=== PATIENT | male | born 1985 | race Caucasian/White ===

== ENCOUNTER 2017-10-30 06:32 | Inpatient (IN) ==
[2017-10-30] MEDS ORDERED: VANCOMYCIN 1,500 MG in 0.9 % SODIUM CHLORIDE 500 ML IV ONE (07:14)
--- NOTE | 2017-10-30 07:18 | Emergency Department Note ---
Skin/Abscess/FB HPI - General Chief complaint: Skin/Abscess/Foreign Body Stated complaint: abscess Time Seen by Provider: 10/30/17 07:13 Source: patient Mode of arrival: ambulatory Limitations: no limitations - History of Present Illness HPI Narrative: This patient has developed a very large abscess to his right upper back. This come on over the last 3 or 4 days. This is impairing movement of the right arm and he has not been very hungry and has not eaten much. - Related Data Previous Rx's Medication Instructions Recorded Methocarbamol [Robaxin-750] 750 mg PO TID #20 tablet 04/07/17 Allergies Allergy/AdvReac Type Severity Reaction Status Date / Time codeine Allergy Rash Verified 04/07/17 14:17 Penicillins Allergy Rash Verified 04/07/17 14:17 Review of Systems All systems ED: reviewed and negative except as stated. Past Medical History - Past Medical History Medical history: Reports: no medical history, other (Crohn's disease) Surgical history ED: Reports: no surgical history - Social History smoking status: Current every day smoker Alcohol use: Reports: Unknown Drug use: Reports: unknown Physical Exam Patient's right upper back shows a very large abscess cavity that is probably 15 cm in diameter and quite deep. Limitations: no limitations General appearance: alert Head: atraumatic Eye: Present: normal appearance ENT: normal exam Neck: Present: normal inspection Chest: Present: normal inspection Respiratory: Present: normal lung sounds bilaterally Cardiovascular: Present: regular rate, normal rhythm, normal heart sounds Neurological: Present: alert Psychiatric: Present: normal affect, normal mood Skin: Present: warm, dry, intact Course Vital Signs Temperature 97.9 F 10/30/17 06:33 Pulse Rate 91 H 10/30/17 06:33 Respiratory Rate 19 10/30/17 06:33 Blood Pressure 139/84 10/30/17 06:33 Pulse Oximetry (%) 97 10/30/17 06:33 Temperature 97.9 F 10/30/17 06:33 Pulse Rate 91 H 10/30/17 06:33 Respiratory Rate 19 10/30/17 06:33 Blood Pressure 139/84 10/30/17 06:33 Pulse Oximetry (%) 97 10/30/17 06:33 Skin/Abscess/Foreign Body - [facility] Narrative Medical decision making narrative: I discussed the case with the surgeon Dr. Winter who will see shortly and taken to the operating room for drainage. - Lab Data Result diagrams: 10/30/17 07:27 10/30/17 07:27 Lab Results 10/30/17 10/30/17 Range/Units 07:27 07:27 WBC 10.9 (4.5-11.0) K/mcL RBC 4.52 (4.50-5.90) M/mcL Hgb 13.3 L (13.5-16.5) g/dL Hct 40.0 L (41.0-55.0) % MCV 88.5 (80.0-100.0) fL MCH 29.5 (26.0-34.0) pg MCHC 33.3 (31.0-36.0) g/dL RDW 13.5 (11.5-14.5) % Plt Count 273 (140-440) K/mcL MPV 8.4 (7.4-10.4) fL Gran % 73.4 (38.0-78.0) % Lymph % (Auto) 14.5 L (15.5-49.0) % [place] % (Auto) 10.1 (1.0-12.0) % Eos % (Auto) 1.6 (0.0-7.0) % Baso % (Auto) 0.4 (0.0-2.0) % Gran # 8.0 (1.8-8.0) K/mcL Lymph # (Auto) 1.6 (1.5-4.8) K/mcL [place] # (Auto) 1.1 H (0.1-0.9) K/mcL Eos # (Auto) 0.2 (0.0-0.7) K/mcL Baso # (Auto) 0 (0.0-0.3) K/mcL Sodium 135 (133-145) mmol/L Potassium 4.3 (3.3-5.1) mmol/L Chloride 94 L (96-108) mmol/L Carbon Dioxide 28 (22-30) mmol/L Anion Gap 13.0 (8-16) BUN 12 (6-20) mg/dl Creatinine 0.9 (0.7-1.2) mg/dl GFR Calculation 112 Glucose 119 H (70-105) mg/dL Calcium 8.7 (8.6-10.4) mg/dl Total Bilirubin 0.6 (0.0-1.0) mg/dL AST 18 (0-37) U/l ALT 22 (0-40) U/l Alkaline Phosphatase 75 (39-117) U/L Total Protein 7.4 (5.9-8.4) gm/dL Albumin 3.6 (3.2-5.2) gm/dL Globulin 3.8 H (2.2-3.7) gm/dL Albumin/Globulin Ratio 0.9 L (1.0-2.3) Disposition Pt seen by JERKER/PA only: No Clinical Impression: Abscess of skin or subcutaneous tissue Disposition: Xfer As Outpt/Obs ([facility]) Condition: Good Instructions: Abscess Incision and Drainage (ED) Referrals: No,PCP [Referring] - Time of Disposition: 08:37
[2017-10-30] MEDS ORDERED: HYDROmorphone 2 MG/ML SYRINGE IV PRN ×2 (07:30→10:27)
[2017-10-30] MEDS: LACTATED RINGERS 1,000 ML IV SCH ×2 (07:30→23:10)
[2017-10-30 08:04] LABS: Basophils # (Auto) 0 K/mcL (0.0-0.3); Basophils % (Auto) 0.4 % (0.0-2.0); Eosinophils # (Auto) 0.2 K/mcL (0.0-0.7); Eosinophils % (Auto) 1.6 % (0.0-7.0); Granulocytes % (Auto) 73.4 % (38.0-78.0); Lymphocytes # (Auto) 1.6 K/mcL (1.5-4.8); Lymphocytes % (Auto) 14.5 % (15.5-49.0); Mean Cell Volume 88.5 fL (80.0-100.0); Mean Corpuscular HGB Conc 33.3 g/dL (31.0-36.0); Mean Corpuscular Hemoglobin 29.5 pg (26.0-34.0); Monocytes # (Auto) 1.1 K/mcL (0.1-0.9); Monocytes % (Auto) 10.1 % (1.0-12.0); Platelet Count 273 K/mcL (140-440); RBC 4.52 M/mcL (4.50-5.90); Red Cell Distribution Width 13.5 % (11.5-14.5)
[2017-10-30 08:21] LABS: ALT/SGPT 22 U/l (0-40); Albumin 3.6 gm/dL (3.2-5.2); Albumin/Globulin Ratio 0.9 (1.0-2.3); Alkaline Phosphatase 75 U/L (39-117); Blood Urea Nitrogen 12 mg/dl (6-20)
[2017-10-30] MEDS ORDERED: IPRATROPIUM/ALBUTEROL 3 ML AMPUL.NEB NEB ONE ×2 (08:43→10:35)
--- NOTE | 2017-10-30 08:48 | General Surg History&Physical ---
History of Present Illness Patient information: Note initiated : 10/30/17 at 8:45 am Service Date, if different from initiated Date: [] Patient: Niko Cash a 31 y/o M admitted on for Abscess. Chief Complaint: [Back abscess] HPI: Mr. 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 The patient had an area of inflammation in the right upper back that has progressed to develop an abscess. He has had fever chills sweats and he developed cellulitis around and extending anteriorly in the axillary area over the past 2 days. He has severe uncontrolled pain. He will be scheduled for I&D in the OR and will be monitored and extended recovery to make sure that he is clinically stable before discharge home. S Review of Systems - Constitutional chills, fever(s), malaise, night sweats, weight gain - EENT Nose, mouth and throat: no dizziness, no headache(s) - Cardiovascular diaphoresis, dyspnea on exertion, palpatations, no chest pain at rest - Respiratory wheezing, chest congestion - Gastrointestinal diarrhea, nausea, no abdominal pain - Genitourinary no dysuria, no urinary frequency, no urinary incontinence - Musculoskeletal no abnormal gait, no atrophy, no muscle weakness, no numbness - Integumentary erythema, hirsutism, pruritus, sores - Neurological no abnormal hearing, no confusion, no convulsions, no dizziness, no vertigo, no weakness - Psychiatric no anxiety, no confusion, no depression - Endocrine fatigue, palpitations - Hematologic/Lymphatic no easy bleeding, no easy bruising, no lymphadenopathy - Allergic/Immunologic no tongue swelling, no throat swelling, no wheezing, no lip swelling Past History Past medical history: History of familial polyposis with carcinoma: No history of heart, lung, kidney ,liver disease Past surgical history: Total colectomy with ileostomy Ileoproctostomy Exploratory laparotomy with drainage of anastomotic leak Past social history: Everyday smoker Occasional alcohol use Medications and Allergies Home Medications Medication Instructions Recorded Confirmed Type Methocarbamol [Robaxin-750] 750 mg PO TID #20 tablet 04/07/17 Rx Allergies Allergy/AdvReac Type Severity Reaction Status Date / Time codeine Allergy Rash Verified 04/07/17 14:17 Penicillins Allergy Rash Verified 04/07/17 14:17 Exam Temp Pulse Resp BP Pulse Ox 97.9 F 91 H 19 139/84 97 10/30/17 06:33 10/30/17 06:33 10/30/17 06:33 10/30/17 06:33 10/30/17 06:33 - General physical appearance well developed, well nourished, no distress - Eyes PERRL, normal ocular movement - ENT normal pinna, normal nares, normal mucosa, no hearing loss, no congestion, poor correction, other (Gingivitis) - Head Head exam IM: Present: atraumatic, normal inspection, normocephalic - Neck no masses (Is), no bruits, trachea midline, no venous distension, other ( no palpable adenopathy) - Cardiovascular Cardiovascular exam IM: Present: normal rate and rhythm, RRR, +S1, +S2, tachycardia. Absent: JVD - Respiratory normal expansion, normal respiratory effort, clear to percussion, other (Good breath sounds but with bilateral coarse wheezes and rhonchi) - Abdomen Abdomen: Present: soft, non tender, bowel sounds, surgical scars (Healed surgical scars in the lower midline and in the right lower quadrant from previous intestinal surgery). Absent: masses Hernia: Present: none - Genitourinary Present: normal penis with no external lesions - Integumentary Present: no rash, no growths, no abnormal pigmentation, other (Scattered areas of small papules with erythema and varied areas of healing; large tender hard inflamed lesion of upper back on the right side extending from medial back to lateral chest wall and the area inferior to the axilla; no blistering to suggest zoster type infection) - Neurologic Present: normal coordination, normal sensation - Musculoskeletal Present: normal gait, normal posture - Psychiatric Present: oriented to time, oriented to person, oriented to place, speech is normal, memory intact Assessment and Plan (1) Abscess of skin or subcutaneous tissue Patient is counseled for incision and drainage of the abscess under anesthesia. This will be done later today Status: Acute (2) Familial adenomatous polyposis Status: Acute
[2017-10-30] MEDS ORDERED: LIDOCAINE HCL/PF 100 MG/5 ML SYRINGE IV ONE (09:35)
[2017-10-30] MEDS ORDERED: MIDAZOLAM 5 MG/5 ML VIAL ONE (09:35)
[2017-10-30] MEDS ORDERED: DEXAMETHASONE 10 MG/ML VIAL ONE (09:35)
[2017-10-30] MEDS ORDERED: GLYCOPYRROLATE 0.2 MG/ML VIAL IV ONE (09:35)
[2017-10-30] MEDS ORDERED: PHENYLEPHRINE 10 MG/ML VIAL ONE (09:35)
[2017-10-30] MEDS ORDERED: ONDANSETRON 4 MG/2 ML VIAL ONE (09:35)
[2017-10-30] MEDS ORDERED: PROPOFOL 200 MG/20 ML VIAL IV ONE (09:35)
[2017-10-30] MEDS ORDERED: fentaNYL 100 MCG/2 ML VIAL IV ONE (09:35)
[2017-10-30] MEDS ORDERED: KETAMINE 10 MG/ML ML ONE (09:35)
--- NOTE | 2017-10-30 10:19 | Brief Operative Note ---
Date of procedure: 10/30/17 Pre-op diagnosis: ABSCESS OF RIGHT UPPER BACK Post-op diagnosis: other Procedure: EXCISIONAL DEBRIDEMENT OF ABSCESS OF RIGHT UPPER BACK INCLUDING SKIN , SUBCUTANEOUS TISSUE FAT AND FASCIA 12X5.5X3CM Grafts/Implants: No Anesthesia: GLMA Findings: DEEP SUBCUTANEOUS ABSCESS EXTENDING ALONG DEEP FASCIA AND SUPERFICIAL MUSCLE Complications: none Surgeon: Gilberto Winter Estimated blood loss (cc): 25 Specimens Removed/Pathology: other (WOUND CULTURES AND NECROTIC TISSUE) Condition: stable Disposition: PACU
[2017-10-30] MEDS ORDERED: NALOXONE HCL 0.4 MG/ML VIAL IV PRN (10:27)
[2017-10-30] MEDS ORDERED: PROMETHAZINE 25 MG/ML VIAL IV PRN (10:27)
[2017-10-30] MEDS ORDERED: ATROPINE SULFATE 0.4 MG/ML VIAL IV PRN (10:27)
[2017-10-30] MEDS ORDERED: IPRATROPIUM/ALBUTEROL 3 ML AMPUL.NEB NEB PRN (10:27)
[2017-10-30] MEDS ORDERED: METHOCARBAMOL 1,000 MG/10 ML VIAL IV PRN (10:27)
[2017-10-30] MEDS ORDERED: MEPERIDINE 25 MG/ML SYRINGE IV PRN (10:27)
[2017-10-30] MEDS ORDERED: ONDANSETRON 4 MG/2 ML VIAL IV PRN ×2 (10:27→10:29)
[2017-10-30] MEDS ORDERED: METOPROLOL TARTRATE 5 MG/5 ML VIAL IV PRN (10:27)
[2017-10-30] MEDS ORDERED: fentaNYL 100 MCG/2 ML VIAL IV PRN (10:27)
[2017-10-30] MEDS ORDERED: FLUMAZENIL 0.1 MG/ML ML IV PRN (10:27)
[2017-10-30] MEDS ORDERED: ePHEDrine 50 MG/ML AMPUL IV PRN (10:27)
[2017-10-30] MEDS ORDERED: diphenhydrAMINE 50 MG/ML VIAL IV PRN (10:27)
[2017-10-30] MEDS ORDERED: ZOLPIDEM 5 MG TABLET PO PRN (10:29)
[2017-10-30] MEDS ORDERED: LACTATED RINGERS 1,000 ML IV SCH (10:30)
[2017-10-30] MEDS: 0.9 % SODIUM CHLORIDE 1,000 ML IV SCH (12:31)
[2017-10-30] MEDS: ERTAPENEM 1 GM in 0.9 % SODIUM CHLORIDE 50 ML IV SCH (12:31)
[2017-10-30] MEDS: HYDROcodone/APAP 5/325MG TABLET PO PRN ×3 (12:32→20:42)
[2017-10-30] MEDS: HYDROmorphone 2 MG/ML SYRINGE IV PRN ×2 (13:32→19:24)
[2017-10-30] MEDS: 0.9 % SODIUM CHLORIDE 10 ML SYRINGE IV SCH ×2 (13:33→23:10)
[2017-10-30 17:34] LABS: Amphetamine Screen,Urine SUSPECT POSITIVE (NONDETECTED); Benzodiazepines Screen,Urine SUSPECT POSITIVE (NONDETECTED); Cocaine Screen,Urine NONE DETECTED (NONDETECTED); Opiate Screen,Urine NONE DETECTED (NONDETECTED)
[2017-10-30] MEDS: VANCOMYCIN 1,500 MG in 0.9 % SODIUM CHLORIDE 500 ML IV SCH (20:43)
[2017-10-30] MEDS: DOCUSATE SODIUM 100 MG CAPSULE PO SCH (23:10)
[2017-10-31] MEDS: 0.9 % SODIUM CHLORIDE 1,000 ML IV SCH ×3 (03:24→18:38)
[2017-10-31] MEDS: HYDROcodone/APAP 5/325MG TABLET PO PRN ×5 (04:10→23:35)
[2017-10-31] MEDS: 0.9 % SODIUM CHLORIDE 10 ML SYRINGE IV SCH ×3 (05:08→22:56)
[2017-10-31 07:13] LABS: Mean Cell Volume 89.5 fL (80.0-100.0); Mean Corpuscular HGB Conc 33.8 g/dL (31.0-36.0); Mean Corpuscular Hemoglobin 30.3 pg (26.0-34.0); Platelet Count 258 K/mcL (140-440); RBC 3.81 M/mcL (4.50-5.90); Red Cell Distribution Width 13.8 % (11.5-14.5)
[2017-10-31 07:56] LABS: ALT/SGPT 18 U/l (0-40); Albumin 2.8 gm/dL (3.2-5.2); Albumin/Globulin Ratio 0.8 (1.0-2.3); Alkaline Phosphatase 74 U/L (39-117); Bilirubin,Direct < 0.2 mg/dL (0.0-0.3); Blood Urea Nitrogen 11 mg/dl (6-20); Gamma Glutamyl Transpeptidase 45 U/L (8-61); Magnesium 1.9 mg/dL (1.6-2.5); Uric Acid 5.6 mg/dL (2.5-8.0)
[2017-10-31 08:19] LABS: Band Neutrophils % 11 % (0-10); Eosinophils % (Manual) 1 % (0-7); Lymphocytes % 15 % (15-49); Monocytes % (Manual) 14 % (1-12); Platelet Estimate NORMAL (NORMAL); RBC Morphology NORMAL (NORMAL); Segmented Neutrophils % 59 % (38-78)
[2017-10-31] MEDS: DOCUSATE SODIUM 100 MG CAPSULE PO SCH ×2 (08:20→20:26)
[2017-10-31 09:08] LABS: Erythrocyte Sedimentation Rate 82 mm/hr (0-15)
[2017-10-31] MEDS: ERTAPENEM 1 GM in 0.9 % SODIUM CHLORIDE 50 ML IV SCH (10:03)
--- NOTE | 2017-10-31 10:39 | General Surgery Progress Note ---
Subjective Patient reports: feels better, pain is less, tolerating a regular diet, afebrile Narrative: Note initiated : 10/31/17 at 10:37 am Service Date, if different from initiated Date: [] Patient: Niko Cash 31 y/o M admitted on 10/30/17 for Abscess of Right Upper Back. Chief Complaint: [Patient is doing much better. He states that his pain is significantly improved. He is afebrile. The edema and swelling of the operative site is significantly improved. He has a moderate amount of drainage. The cellulitis in the surrounding areas has begun to recede. His white blood count remains normal. Because of suspicion of drug use a urine drug screen was done which is positive for marijuana and amphetamines along with benzodiazepine.] Objective Temp Pulse Resp BP Pulse Ox 97.9 F 66 18 104/68 95 10/31/17 07:08 10/31/17 04:00 10/31/17 07:08 10/31/17 07:08 10/31/17 07:08 - Additional Data Intake & Output - Last 24 hours: Intake & Output 10/29/17 10/30/17 10/31/17 11/01/17 05:59 05:59 05:59 05:59 Intake Total 3690 / 3690 600 / 600 Output Total 950 / 950 Balance 2740 / 2740 600 / 600 Weight 260 lb - General physical appearance no distress, moderate pain - Eyes PERRL - ENT no congestion - Neck no venous distension - Respiratory normal respiratory effort, clear to auscultation - Cardiovascular Cardiovascular exam: Present: normal rate and rhythm, RRR, +S1, +S2. Absent: gallop, JVD - Abdomen soft, non tender, bowel sounds, distended (Abdominal exam is benign with good active bowel sounds and no tenderness) - Integumentary other (Operative site of the upper back is improved as noted above) - Neurologic normal coordination, normal sensation - Musculoskeletal normal gait, normal posture - Psychiatric oriented to time, oriented to person, oriented to place, speech is normal, memory intact - Labs 10/31/17 04:09 10/31/17 04:09 Diabetes panel 10/31/17 Range/Units 04:09 Sodium 136 (133-145) mmol/L Potassium 4.0 (3.3-5.1) mmol/L Chloride 100 (96-108) mmol/L Carbon Dioxide 26 (22-30) mmol/L BUN 11 (6-20) mg/dl Creatinine 0.8 (0.7-1.2) mg/dl Glucose 107 H (70-105) mg/dL Calcium 7.7 L (8.6-10.4) mg/dl AST 14 (0-37) U/l ALT 18 (0-40) U/l Alkaline Phosphatase 74 (39-117) U/L Total Protein 6.2 (5.9-8.4) gm/dL Albumin 2.8 L (3.2-5.2) gm/dL Triglycerides 90 (<150) mg/dl Calcium panel 10/31/17 Range/Units 04:09 Calcium 7.7 L (8.6-10.4) mg/dl Phosphorus 3.1 (2.7-4.5) mg/dL Albumin 2.8 L (3.2-5.2) gm/dL Pituitary panel 10/31/17 Range/Units 04:09 Sodium 136 (133-145) mmol/L Potassium 4.0 (3.3-5.1) mmol/L Chloride 100 (96-108) mmol/L Carbon Dioxide 26 (22-30) mmol/L BUN 11 (6-20) mg/dl Creatinine 0.8 (0.7-1.2) mg/dl Glucose 107 H (70-105) mg/dL Calcium 7.7 L (8.6-10.4) mg/dl Adrenal panel 10/31/17 Range/Units 04:09 Sodium 136 (133-145) mmol/L Potassium 4.0 (3.3-5.1) mmol/L Chloride 100 (96-108) mmol/L Carbon Dioxide 26 (22-30) mmol/L BUN 11 (6-20) mg/dl Creatinine 0.8 (0.7-1.2) mg/dl Glucose 107 H (70-105) mg/dL Calcium 7.7 L (8.6-10.4) mg/dl Total Bilirubin 0.3 (0.0-1.0) mg/dL AST 14 (0-37) U/l ALT 18 (0-40) U/l Alkaline Phosphatase 74 (39-117) U/L Total Protein 6.2 (5.9-8.4) gm/dL Albumin 2.8 L (3.2-5.2) gm/dL Assessment and Plan (1) Abscess of skin or subcutaneous tissue Status: Acute Assessment and plan: Clinically improved with receding cellulitis and decreased drainage Current Visit: Yes (2) Familial adenomatous polyposis Status: Acute Current Visit: Yes - Time Spent With Patient Total time spent is greater than 50% in coordination of care (as documented) at patient's floor/unit and/or counseling patient:
[2017-10-31] MEDS: VANCOMYCIN 1,500 MG in 0.9 % SODIUM CHLORIDE 500 ML IV SCH ×2 (10:48→20:26)
[2017-11-01] MEDS: DOCUSATE SODIUM 100 MG CAPSULE PO SCH ×3 (02:51→20:12)
[2017-11-01] MEDS: 0.9 % SODIUM CHLORIDE 1,000 ML IV SCH ×3 (04:33→17:00)
[2017-11-01] MEDS: 0.9 % SODIUM CHLORIDE 10 ML SYRINGE IV SCH ×3 (05:38→20:18)
[2017-11-01 05:59] LABS: Mean Cell Volume 89.6 fL (80.0-100.0); Mean Corpuscular HGB Conc 33.4 g/dL (31.0-36.0); Mean Corpuscular Hemoglobin 29.9 pg (26.0-34.0); Platelet Count 265 K/mcL (140-440); RBC 3.71 M/mcL (4.50-5.90); Red Cell Distribution Width 13.4 % (11.5-14.5)
[2017-11-01 06:29] LABS: ALT/SGPT 17 U/l (0-40); Albumin 2.9 gm/dL (3.2-5.2); Alkaline Phosphatase 64 U/L (39-117); Bilirubin,Direct < 0.2 mg/dL (0.0-0.3); Blood Urea Nitrogen 11 mg/dl (6-20); Gamma Glutamyl Transpeptidase 43 U/L (8-61); Magnesium 1.9 mg/dL (1.6-2.5)
[2017-11-01 07:51] LABS: Band Neutrophils % 2 % (0-10); Eosinophils % (Manual) 1 % (0-7); Lymphocytes % 22 % (15-49); Monocytes % (Manual) 8 % (1-12); Platelet Estimate NORMAL (NORMAL); RBC Morphology NORMAL (NORMAL); Segmented Neutrophils % 67 % (38-78)
[2017-11-01] MEDS: VANCOMYCIN 1,500 MG in 0.9 % SODIUM CHLORIDE 500 ML IV SCH ×2 (09:00→20:14)
[2017-11-01] MEDS: ERTAPENEM 1 GM in 0.9 % SODIUM CHLORIDE 50 ML IV SCH (10:23)
--- NOTE | 2017-11-01 12:45 | General Surgery Progress Note ---
Subjective Patient reports: feels better, pain is less, tolerating a regular diet, afebrile Narrative: Note initiated : 11/01/17 at 12:43 pm Service Date, if different from initiated Date: [] Patient: Niko Cash 31 y/o M admitted on 10/30/17 for Abscess of Right Upper Back. Chief Complaint: [Patient is doing well. His cultures grew out MRSA. He has increased drainage today so we will do more frequent dressing changes. I will make a decision about reoperation tomorrow.] Objective Temp Pulse Resp BP Pulse Ox 98.6 F 61 18 108/83 95 11/01/17 11:51 11/01/17 04:00 11/01/17 11:51 11/01/17 11:51 11/01/17 11:51 - Additional Data Intake & Output - Last 24 hours: Intake & Output 10/30/17 10/31/17 11/01/17 11/02/17 05:59 05:59 05:59 05:59 Intake Total 4190 / 4190 4750 / 4750 1000 / 1000 Output Total 950 / 950 800 / 800 Balance 3240 / 3240 3950 / 3950 1000 / 1000 Weight 260 lb 262 lb 8 oz - General physical appearance well developed, well nourished, no distress, severe distress - Eyes PERRL, normal ocular movement - ENT no congestion - Neck no venous distension - Respiratory normal expansion, normal respiratory effort, clear to percussion, clear to auscultation - Cardiovascular Cardiovascular exam: Present: normal rate and rhythm, RRR, +S1, +S2. Absent: JVD - Abdomen non tender, bowel sounds (present), surgical scars (none), masses (none) - Integumentary other (Multiple papular lesions of the back; operative site right upper back has increased drainage but the cellulitis has decreased.) - Neurologic normal coordination, normal sensation - Musculoskeletal normal gait, normal posture - Psychiatric oriented to time, oriented to person, oriented to place, speech is normal, memory intact - Labs 11/01/17 04:32 11/01/17 04:32 Diabetes panel 11/01/17 Range/Units 04:32 Sodium 140 (133-145) mmol/L Potassium 4.2 (3.3-5.1) mmol/L Chloride 105 (96-108) mmol/L Carbon Dioxide 25 (22-30) mmol/L BUN 11 (6-20) mg/dl Creatinine 0.7 (0.7-1.2) mg/dl Glucose 106 H (70-105) mg/dL Calcium 7.9 L (8.6-10.4) mg/dl AST 14 (0-37) U/l ALT 17 (0-40) U/l Alkaline Phosphatase 64 (39-117) U/L Total Protein 5.9 (5.9-8.4) gm/dL Albumin 2.9 L (3.2-5.2) gm/dL Triglycerides 64 (<150) mg/dl Calcium panel 11/01/17 Range/Units 04:32 Calcium 7.9 L (8.6-10.4) mg/dl Phosphorus 2.4 L (2.7-4.5) mg/dL Albumin 2.9 L (3.2-5.2) gm/dL Pituitary panel 11/01/17 Range/Units 04:32 Sodium 140 (133-145) mmol/L Potassium 4.2 (3.3-5.1) mmol/L Chloride 105 (96-108) mmol/L Carbon Dioxide 25 (22-30) mmol/L BUN 11 (6-20) mg/dl Creatinine 0.7 (0.7-1.2) mg/dl Glucose 106 H (70-105) mg/dL Calcium 7.9 L (8.6-10.4) mg/dl Adrenal panel 11/01/17 Range/Units 04:32 Sodium 140 (133-145) mmol/L Potassium 4.2 (3.3-5.1) mmol/L Chloride 105 (96-108) mmol/L Carbon Dioxide 25 (22-30) mmol/L BUN 11 (6-20) mg/dl Creatinine 0.7 (0.7-1.2) mg/dl Glucose 106 H (70-105) mg/dL Calcium 7.9 L (8.6-10.4) mg/dl Total Bilirubin 0.2 (0.0-1.0) mg/dL AST 14 (0-37) U/l ALT 17 (0-40) U/l Alkaline Phosphatase 64 (39-117) U/L Total Protein 5.9 (5.9-8.4) gm/dL Albumin 2.9 L (3.2-5.2) gm/dL Assessment and Plan (1) Abscess of skin or subcutaneous tissue Status: Acute Assessment and plan: Clinically improved with receding cellulitis and decreased drainage We will make decision concerning reoperation tomorrow Current Visit: Yes (2) Familial adenomatous polyposis Status: Acute Current Visit: Yes - Time Spent With Patient Total time spent is greater than 50% in coordination of care (as documented) at patient's floor/unit and/or counseling patient:
[2017-11-01] MEDS: HYDROcodone/APAP 5/325MG TABLET PO PRN ×2 (12:47→20:12)
[2017-11-02] MEDS: DOCUSATE SODIUM 100 MG CAPSULE PO SCH ×3 (02:44→21:22)
[2017-11-02] MEDS: 0.9 % SODIUM CHLORIDE 1,000 ML IV SCH ×3 (04:18→21:21)
[2017-11-02] MEDS: HYDROcodone/APAP 5/325MG TABLET PO PRN ×4 (04:35→18:20)
[2017-11-02] MEDS: 0.9 % SODIUM CHLORIDE 10 ML SYRINGE IV SCH ×3 (05:23→23:03)
[2017-11-02 05:30] LABS: Mean Cell Volume 89.1 fL (80.0-100.0); Mean Corpuscular HGB Conc 33.7 g/dL (31.0-36.0); Platelet Count 303 K/mcL (140-440); RBC 3.84 M/mcL (4.50-5.90); Red Cell Distribution Width 13.6 % (11.5-14.5)
[2017-11-02 05:57] LABS: ALT/SGPT 20 U/l (0-40); Albumin 2.9 gm/dL (3.2-5.2); Albumin/Globulin Ratio 0.9 (1.0-2.3); Alkaline Phosphatase 63 U/L (39-117); Bilirubin,Direct < 0.2 mg/dL (0.0-0.3); Blood Urea Nitrogen 9 mg/dl (6-20); Gamma Glutamyl Transpeptidase 44 U/L (8-61); Magnesium 1.8 mg/dL (1.6-2.5); Uric Acid 4.6 mg/dL (2.5-8.0)
[2017-11-02 06:44] LABS: Band Neutrophils % 3 % (0-10); Eosinophils % (Manual) 2 % (0-7); Lymphocytes % 28 % (15-49); Monocytes % (Manual) 5 % (1-12); Platelet Estimate NORMAL (NORMAL); RBC Morphology NORMAL (NORMAL); Segmented Neutrophils % 62 % (38-78)
[2017-11-02] MEDS: VANCOMYCIN 1,500 MG in 0.9 % SODIUM CHLORIDE 500 ML IV SCH ×2 (09:00→21:32)
[2017-11-02] MEDS: ERTAPENEM 1 GM in 0.9 % SODIUM CHLORIDE 50 ML IV SCH (09:55)
--- NOTE | 2017-11-02 12:27 | General Surgery Progress Note ---
Subjective Patient reports: feels better, pain is less, tolerating a regular diet, afebrile Narrative: Note initiated : 11/02/17 at 12:25 pm Service Date, if different from initiated Date: [] Patient: Niko Cash 31 y/o M admitted on 10/30/17 for Abscess of Right Upper Back. Chief Complaint: [Patient is doing well. He still has copious drainage from his wound. The Aquacel packing was changed and there is still a lot of purulent drainage with some necrotic fascia. I will make arrangements for him to have further debridement with placement of wound VAC on Friday. The induration and cellulitis surrounding the incision is significantly improved. He remains afebrile and his white blood count remains normal] Objective Temp Pulse Resp BP Pulse Ox 97.8 F 67 20 109/61 93 11/02/17 11:20 11/02/17 04:00 11/02/17 11:20 11/02/17 11:20 11/02/17 11:20 - Additional Data Intake & Output - Last 24 hours: Intake & Output 10/31/17 11/01/17 11/02/17 11/03/17 05:59 05:59 05:59 05:59 Intake Total 4190 / 4190 4750 / 4750 5060 / 5060 550 / 550 Output Total 950 / 950 800 / 800 350 / 350 Balance 3240 / 3240 3950 / 3950 4710 / 4710 550 / 550 Weight 260 lb 262 lb 8 oz 265 lb - ENT no congestion - Neck no venous distension - Respiratory normal expansion, normal respiratory effort, clear to auscultation - Cardiovascular Cardiovascular exam: Present: normal rate and rhythm, RRR, +S1, +S2. Absent: gallop, JVD, systolic murmur - Abdomen soft, non tender, bowel sounds (Abdomen is benign with normal active bowel sounds) - Integumentary other (Right upper back wound shows residual purulent drainage and necrotic fascia that will need further debridement prior to placement of wound VAC) - Neurologic normal coordination, normal sensation - Musculoskeletal normal gait, normal posture - Psychiatric oriented to time, oriented to person, oriented to place, speech is normal, memory intact - Labs 11/02/17 04:13 11/02/17 04:13 Diabetes panel 11/02/17 Range/Units 04:13 Sodium 139 (133-145) mmol/L Potassium 4.5 (3.3-5.1) mmol/L Chloride 102 (96-108) mmol/L Carbon Dioxide 26 (22-30) mmol/L BUN 9 (6-20) mg/dl Creatinine 0.7 (0.7-1.2) mg/dl Glucose 136 H (70-105) mg/dL Calcium 8.1 L (8.6-10.4) mg/dl AST 13 (0-37) U/l ALT 20 (0-40) U/l Alkaline Phosphatase 63 (39-117) U/L Total Protein 6.2 (5.9-8.4) gm/dL Albumin 2.9 L (3.2-5.2) gm/dL Triglycerides 127 (<150) mg/dl Calcium panel 11/02/17 Range/Units 04:13 Calcium 8.1 L (8.6-10.4) mg/dl Phosphorus 2.3 L (2.7-4.5) mg/dL Albumin 2.9 L (3.2-5.2) gm/dL Pituitary panel 11/02/17 Range/Units 04:13 Sodium 139 (133-145) mmol/L Potassium 4.5 (3.3-5.1) mmol/L Chloride 102 (96-108) mmol/L Carbon Dioxide 26 (22-30) mmol/L BUN 9 (6-20) mg/dl Creatinine 0.7 (0.7-1.2) mg/dl Glucose 136 H (70-105) mg/dL Calcium 8.1 L (8.6-10.4) mg/dl Adrenal panel 11/02/17 Range/Units 04:13 Sodium 139 (133-145) mmol/L Potassium 4.5 (3.3-5.1) mmol/L Chloride 102 (96-108) mmol/L Carbon Dioxide 26 (22-30) mmol/L BUN 9 (6-20) mg/dl Creatinine 0.7 (0.7-1.2) mg/dl Glucose 136 H (70-105) mg/dL Calcium 8.1 L (8.6-10.4) mg/dl Total Bilirubin < 0.2 (0.0-1.0) mg/dL AST 13 (0-37) U/l ALT 20 (0-40) U/l Alkaline Phosphatase 63 (39-117) U/L Total Protein 6.2 (5.9-8.4) gm/dL Albumin 2.9 L (3.2-5.2) gm/dL Assessment and Plan (1) Abscess of skin or subcutaneous tissue Status: Acute Assessment and plan: Schedule for repeat debridement and placement of wound VAC on Friday of next week Current Visit: Yes (2) Familial adenomatous polyposis Status: Acute Current Visit: Yes - Time Spent With Patient Total time spent is greater than 50% in coordination of care (as documented) at patient's floor/unit and/or counseling patient:
[2017-11-03] MEDS: HYDROcodone/APAP 5/325MG TABLET PO PRN ×4 (04:42→23:28)
[2017-11-03] MEDS: 0.9 % SODIUM CHLORIDE 10 ML SYRINGE IV SCH ×3 (06:11→20:41)
[2017-11-03] MEDS: DOCUSATE SODIUM 100 MG CAPSULE PO SCH ×2 (07:13→20:41)
[2017-11-03] MEDS: 0.9 % SODIUM CHLORIDE 1,000 ML IV SCH ×3 (07:13→23:29)
[2017-11-03] MEDS: VANCOMYCIN 1,500 MG in 0.9 % SODIUM CHLORIDE 500 ML IV SCH ×2 (09:25→20:40)
[2017-11-03] MEDS: ERTAPENEM 1 GM in 0.9 % SODIUM CHLORIDE 50 ML IV SCH (09:25)
--- NOTE | 2017-11-03 17:41 | General Surgery Progress Note ---
Subjective Patient reports: feels better, pain is less, afebrile Narrative: Note initiated : 11/03/17 at 5:39 pm Service Date, if different from initiated Date: [] Patient: Niko Cash 31 y/o M admitted on 10/30/17 for Abscess of Right Upper Back. Chief Complaint: [Patient still has moderate amount of purulent drainage. Discussed with him the need to further debride his wound and place wound VAC. This will be done tomorrow.] Objective Temp Pulse Resp BP Pulse Ox 98.4 F 87 18 120/78 95 11/03/17 16:00 11/03/17 04:00 11/03/17 16:00 11/03/17 16:00 11/03/17 16:00 - Additional Data Intake & Output - Last 24 hours: Intake & Output 11/01/17 11/02/17 11/03/17 11/04/17 05:59 05:59 05:59 05:59 Intake Total 4750 / 4750 5060 / 5060 3050 / 3050 2270 / 2270 Output Total 800 / 800 350 / 350 600 / 600 800 / 800 Balance 3950 / 3950 4710 / 4710 2450 / 2450 1470 / 1470 Weight 262 lb 8 oz 265 lb 266 lb 8 oz - Neck no masses - Respiratory normal expansion, clear to auscultation - Cardiovascular Cardiovascular exam: Present: normal rate and rhythm, RRR, +S1, +S2. Absent: JVD - Abdomen soft, non tender - Integumentary no rash, no growths, no abnormal pigmentation, other (Wound of right upper back still has significant purulent) - Neurologic normal coordination, normal sensation - Musculoskeletal normal gait, normal posture - Psychiatric oriented to time, oriented to person, oriented to place, speech is normal, memory intact - Labs 11/02/17 04:13 11/02/17 04:13 Assessment and Plan (1) Abscess of skin or subcutaneous tissue Status: Acute Assessment and plan: Schedule for repeat debridement and placement of wound VAC on Friday Current Visit: Yes (2) Familial adenomatous polyposis Status: Acute Current Visit: Yes - Time Spent With Patient Total time spent is greater than 50% in coordination of care (as documented) at patient's floor/unit and/or counseling patient:
[2017-11-04] MEDS: 0.9 % SODIUM CHLORIDE 10 ML SYRINGE IV SCH ×4 (05:09→23:58)
[2017-11-04 05:41] LABS: ALT/SGPT 27 U/l (0-40); Albumin/Globulin Ratio 0.9 (1.0-2.3); Alkaline Phosphatase 65 U/L (39-117); Blood Urea Nitrogen 12 mg/dl (6-20)
[2017-11-04 05:56] LABS: Basophils # (Auto) 0 K/mcL (0.0-0.3); Basophils % (Auto) 0.3 % (0.0-2.0); Eosinophils # (Auto) 0.4 K/mcL (0.0-0.7); Eosinophils % (Auto) 4.4 % (0.0-7.0); Granulocytes % (Auto) 62.3 % (38.0-78.0); Lymphocytes # (Auto) 2.1 K/mcL (1.5-4.8); Lymphocytes % (Auto) 26.1 % (15.5-49.0); Mean Cell Volume 89.1 fL (80.0-100.0); Mean Corpuscular Hemoglobin 29.4 pg (26.0-34.0); Monocytes # (Auto) 0.5 K/mcL (0.1-0.9); Monocytes % (Auto) 6.9 % (1.0-12.0); Platelet Count 381 K/mcL (140-440); RBC 4.24 M/mcL (4.50-5.90); Red Cell Distribution Width 13.7 % (11.5-14.5)
[2017-11-04] MEDS: HYDROcodone/APAP 5/325MG TABLET PO PRN ×3 (06:10→21:45)
[2017-11-04] MEDS: VANCOMYCIN 1,500 MG in 0.9 % SODIUM CHLORIDE 500 ML IV SCH (09:03)
[2017-11-04] MEDS: DOCUSATE SODIUM 100 MG CAPSULE PO SCH ×2 (09:04→21:44)
[2017-11-04] MEDS: ERTAPENEM 1 GM in 0.9 % SODIUM CHLORIDE 50 ML IV SCH (10:50)
[2017-11-04] MEDS: 0.9 % SODIUM CHLORIDE 1,000 ML IV SCH (10:50)
[2017-11-04] MEDS ORDERED: IPRATROPIUM/ALBUTEROL 3 ML AMPUL.NEB NEB ONE ×2 (13:15→13:22)
[2017-11-04] MEDS ORDERED: PROPOFOL 200 MG/20 ML VIAL IV ONE (14:00)
[2017-11-04] MEDS ORDERED: LIDOCAINE HCL/PF 100 MG/5 ML SYRINGE IV ONE (14:00)
[2017-11-04] MEDS ORDERED: MIDAZOLAM 5 MG/5 ML VIAL IV ONE (14:00)
[2017-11-04] MEDS ORDERED: DEXAMETHASONE 10 MG/ML VIAL IV ONE (14:00)
[2017-11-04] MEDS ORDERED: fentaNYL 100 MCG/2 ML VIAL IV ONE (14:00)
[2017-11-04] MEDS ORDERED: KETAMINE 100 MG/ML ML IV ONE (14:00)
[2017-11-04] MEDS ORDERED: ONDANSETRON 4 MG/2 ML VIAL IV ONE (14:00)
--- NOTE | 2017-11-04 14:38 | Brief Operative Note ---
Date of procedure: 11/04/17 Pre-op diagnosis: chronic abscess of right upper back Post-op diagnosis: other (chronic abscess of right upper back) Procedure: surgical debridement of abscess cavity of right upper back placement of wound vac system Grafts/Implants: No Anesthesia: GLMA Findings: residual fascial necrosis and early granulations Complications: none Surgeon: Gilberto Winter Estimated blood loss (cc): 10 Specimens Removed/Pathology: none sent Condition: stable Disposition: PACU
[2017-11-04] MEDS ORDERED: ePHEDrine 50 MG/ML AMPUL IV PRN (14:40)
[2017-11-04] MEDS ORDERED: IPRATROPIUM/ALBUTEROL 3 ML AMPUL.NEB NEB PRN (14:40)
[2017-11-04] MEDS ORDERED: NALOXONE HCL 0.4 MG/ML VIAL IV PRN (14:40)
[2017-11-04] MEDS ORDERED: FLUMAZENIL 0.1 MG/ML ML IV PRN (14:40)
[2017-11-04] MEDS ORDERED: ONDANSETRON 4 MG/2 ML VIAL IV PRN ×2 (14:40→15:38)
[2017-11-04] MEDS ORDERED: ATROPINE SULFATE 0.4 MG/ML VIAL IV PRN (14:40)
[2017-11-04] MEDS ORDERED: BENZOCAINE/MENTHOL 1 LOZENGE PO PRN (14:40)
[2017-11-04] MEDS ORDERED: fentaNYL 100 MCG/2 ML VIAL IV PRN (14:40)
[2017-11-04] MEDS ORDERED: diphenhydrAMINE 50 MG/ML VIAL IV PRN (14:40)
[2017-11-04] MEDS ORDERED: LACTATED RINGERS 1,000 ML IV SCH (14:45)
[2017-11-04] MEDS ORDERED: HYDROmorphone 2 MG/ML SYRINGE IV PRN (15:38)
[2017-11-04] MEDS ORDERED: ZOLPIDEM 5 MG TABLET PO PRN (21:00)
[2017-11-04] MEDS ORDERED: VANCOMYCIN 1,500 MG in 0.9 % SODIUM CHLORIDE 500 ML IV SCH (21:00)
[2017-11-05] MEDS: HYDROcodone/APAP 5/325MG TABLET PO PRN ×3 (03:36→12:57)
[2017-11-05] MEDS: 0.9 % SODIUM CHLORIDE 10 ML SYRINGE IV SCH ×2 (04:42→11:16)
[2017-11-05] MEDS: DOCUSATE SODIUM 100 MG CAPSULE PO SCH (08:29)
[2017-11-05] MEDS ORDERED: VANCOMYCIN 1,750 MG in 0.9 % SODIUM CHLORIDE 500 ML IV SCH (11:00)
[2017-11-05] MEDS ORDERED: VANCOMYCIN PER PHARMACY IV SCH (12:15)
--- NOTE | 2017-11-05 12:25 | General Surgery Progress Note ---
Subjective Patient reports: feels better, pain is less, afebrile Narrative: Note initiated : 11/05/17 at 12:23 pm Service Date, if different from initiated Date: [] Patient: Niko Cash 31 y/o M admitted on 10/30/17 for Abscess of Right Upper Back. Chief Complaint: [] Objective Temp Pulse Resp BP Pulse Ox 96.6 F L 75 18 132/76 94 11/05/17 07:21 11/05/17 07:21 11/05/17 07:21 11/05/17 07:21 11/05/17 07:21 - Additional Data Intake & Output - Last 24 hours: Intake & Output 11/03/17 11/04/17 11/05/17 11/06/17 05:59 05:59 05:59 05:59 Intake Total 3050 / 3050 4590 / 4590 2550 / 2550 Output Total 600 / 600 1475 / 1475 1550 / 1550 Balance 2450 / 2450 3115 / 3115 1000 / 1000 Weight 266 lb 8 oz 266 lb 265 lb 8 oz - General physical appearance well developed, no distress, moderate pain - Eyes PERRL - ENT no congestion - Neck no venous distension - Respiratory normal respiratory effort, clear to auscultation - Cardiovascular Cardiovascular exam: Present: normal rate and rhythm, RRR, +S1, +S2. Absent: JVD - Abdomen soft, non tender, bowel sounds - Integumentary no rash, no growths, no abnormal pigmentation - Neurologic normal coordination, normal sensation - Musculoskeletal normal gait, normal posture - Psychiatric oriented to time, oriented to person, oriented to place, speech is normal, memory intact - Labs 11/04/17 03:50 11/04/17 03:50 Assessment and Plan (1) Abscess of skin or subcutaneous tissue Status: Acute Assessment and plan: patient is stable for discharge Current Visit: Yes (2) Familial adenomatous polyposis Status: Acute Current Visit: Yes - Time Spent With Patient Total time spent is greater than 50% in coordination of care (as documented) at patient's floor/unit and/or counseling patient:
--- NOTE | 2017-11-05 12:27 | Discharge Summary ---
Providers - Providers Patient information: Note initiated : 11/05/17 at 12:25 pm Service Date, if different from initiated Date: [] Patient: Niko Cash 31 y/o M admitted on 10/30/17 for Abscess of Right Upper Back. Chief Complaint: [] Date of admission: 10/30/17 Discharge date: 11/05/17 Attending physician: Gilberto Winter Hospitalization Hospital course: 31-year-old male who presented with a large abscess of his right upper back. He was explored on the day of admission and had a necrotizing abscess which extended down to the fascia. Wide excisional debridement including fascia and superficial muscle was carried out. Cultures of the tissue were taken and this grew out MRSA. He was treated with vancomycin and local wound care. He had follow-up debridement on yesterday and had scattered areas of superficial necrosis which was widely debrided. Most of the area showed early granulation sorry wound VAC was placed. He is stable and will be discharged home with the wound VAC system in place with home health follow-up weekly and will follow-up in the office Discharge diagnosis: Necrotizing abscess right upper back Reason for admission: Abscess of back Procedures: Full-thickness excision and debridement abscess right upper back --30 October 2016 Secondary debridement abscess cavity right upper back --October2016 -- Complications: None Exam Temp Pulse Resp BP Pulse Ox 96.6 F L 75 18 132/76 94 11/05/17 07:21 11/05/17 07:21 11/05/17 07:21 11/05/17 07:21 11/05/17 07:21 - General physical appearance well developed, well nourished, no distress - Eyes PERRL, normal ocular movement - ENT normal pinna, normal nares, normal mucosa, no hearing loss, no congestion - Head Head exam IM: Present: atraumatic, normocephalic - Neck no masses, no bruits, trachea midline, no lymphadectomy, no venous distension - Cardiovascular Cardiovascular exam IM: Present: normal rate and rhythm - Respiratory normal expansion, normal respiratory effort, clear to percussion, clear to auscultation - Abdomen Abdomen: Present: soft, non tender, bowel sounds Hernia: Present: none - Genitourinary Present: normal penis with no external lesions - Integumentary Present: no rash, no growths, no abnormal pigmentation, other (Healing abscess cavity full-thickness right upper back with wound VAC system in place) - Neurologic Present: normal coordination, normal sensation - Musculoskeletal Present: normal gait, normal posture - Psychiatric Present: oriented to time, oriented to person, oriented to place, speech is normal, memory intact Discharge Plan - Patient/Caregiver Discharge Instructions Activity: increase activity as tolerated Diet: Regular Diet Additional Instructions: Dressings will be replaced once weekly in the office and once weekly by home health. Contact the office on the home health nurse the wound VAC systems should not operate appropriately Prescriptions: Clindamycin [Cleocin] 600 mg PO QID #40 cap oxyCODONE HCL/ACETAMINOPHEN [Endocet 10-325 mg Tablet] 1 each PO Q6HP PRN #90 tab PRN Reason: Pain Level 3-6 - Follow up Plan Follow up with: No,PCP [Referring] - Disposition: Home, Self-Care Prognosis: Good Rehab Potential: Good I certify that the patient requires SNF services.: No Overall status at discharge: patient is not back to baseline Pending Studies Resuscitation Status Full Code Diet Regular Diet Start FriNov 04 1440 Hydrocodone Bitart/Acetaminophen (Buchanan 5/325mg) 1 tab PO Q4HP PRN PRN Reason: PAIN LEVEL 3-6 Last Admin: 11/05/17 08:52 Dose: 1 tab Admin: 11/05/17 03:36 Dose: 1 tab Admin: 11/04/17 21:45 Dose: 1 tab Admin: 11/04/17 17:37 Dose: 1 tab Docusate Sodium (Colace) 100 mg PO BID [facility] Last Admin: 11/05/17 08:29 Dose: Not Given Admin: 11/04/17 21:44 Dose: Not Given Hydromorphone HCl (Dilaudid) 1 mg IV Q2HP PRN PRN Reason: PAIN LEVEL > 6 Last Admin: 11/04/17 16:36 Dose: 1 mg Vancomycin HCl 1,750 mg/ (Sodium Chloride) 500 mls @ 250 mls/hr IV Q12H [facility] Last Admin: 11/05/17 11:15 Dose: 250 mls/hr Sodium Chloride (Saline Flush) 10 ml IV Q8 [facility] Last Admin: 11/05/17 11:16 Dose: 10 ml Admin: 11/05/17 04:42 Dose: 10 ml Admin: 11/04/17 23:58 Dose: 10 ml Admin: 11/04/17 21:45 Dose: 10 ml Shift Summary 11/05/17 03:57 Shift Summary by Basilio Fry Pt rested most of the noc. Post RT shoulder surgical wound w/ wound vac @ -125 continuous - scant sanguinous output in tubing - dressing - C,D,I. Buchanan 5 (1) PO last given @ 0335. Saline lock x2 to bilat A/C's - flushed & patent. He is up AMB (I) in Rm - gait stable w/o device - voiding QS into urinal. Hx colon removal 2nd to colon CA - frequent BM's. VS - WNL on R.A.. He is calm, pleasant, & cooperative for this RN. D/C to home later today. Initialized on 11/05/17 03:57 - END OF NOTE
--- NOTE | 2017-11-10 10:17 | Operative Note ---
DATE OF OPERATION: 11/04/2017 PREOPERATIVE DIAGNOSIS: Chronic abscess, right upper back. POSTOPERATIVE DIAGNOSIS: Chronic abscess, right upper back. PROCEDURE: 1. Surgical debridement of abscess cavity, right upper back. 2. Placement of wound V.A.C system. SURGEON: Gilberto Winter M.D. FINDINGS: Residual fascial necrosis with early granulation. DESCRIPTION: Under general anesthesia with LMA, the patient was turned to the modified left lateral decubitus position. The large abscess cavity of the right upper back was vigorously scrubbed. He was then prepped and draped in a sterile field. Inspection revealed some residual fascial necrosis in the lateral part of the wound. This was debrided and discarded. The debridement was done with a 15 blade and scalpel. All residual necrosis was removed. the central portion of the cavity had some early granulation. It was felt that the wound was clean enough for placement of wound V.A.C. It was irrigated with bacitracin solution. Wound V.A.C. dressing consisting of black granular sponge and with the pressure system was placed without difficulty. It was placed under 25 mmHg pressure suction. It maintained suction. The patient tolerated the procedure well. He was awakened, transferred to a bed, and taken to the postanesthetic care unit in stable, satisfactory condition. LCS:gracie Job ID: [id number] Doc ID: [id number] Gilberto Winter M.D. MTDD
--- NOTE | 2017-11-26 13:37 | Operative Note ---
DATE OF OPERATION: 10/30/2017 PREOPERATIVE DIAGNOSIS: Abscess of right upper back. POSTOPERATIVE DIAGNOSIS: Necrotizing abscess of right upper back. PROCEDURE: Excisional debridement of abscess of right upper back including the skin and subcutaneous tissue, fat, and fascia measuring 12 x 5.5 x 3 cm. SURGEON: Gilberto Winter MD FINDINGS: Deep subcutaneous fascial abscess extending along the deep fascial plane and superficial muscle. DESCRIPTION OF PROCEDURE: Under general anesthesia, the patient was turned to the modified left lateral decubitus position. The right upper back and neck were prepped and draped in a sterile field. An elliptical incision was made over the bulging abscess cavity, removing skin and subcutaneous tissue. In the depth of the wound along the fascia of the musculature there was a large amount of necrotic debris. More subcutaneous tissue and fascia were removed. Some of the superficial fibers of the muscle were also removed. The dissection was carried out using electrocautery and Metzenbaum scissors. Once all of the necrotic tissue was removed, the area was irrigated with bacitracin solution. It measured 12 x 5.5 x 3 cm. It was not amenable to primary closure. It was felt that he would need a follow-up repeat debridement in about 2 to 3 days and wound V.A.C. placement. Cultures of the necrotic tissue and the purulent drainage were taken. The wound was packed with Aquacel, AG gauze and covered with 4 x 4 gauze and tape. The patient was turned to the supine position, extubated, and transferred to the Postanesthetic Care Unit in a stable satisfactory condition. LCS:verito Job ID: [id number] Doc ID: [id number] Gilberto Winter M.D.
== END 2017-11-05 14:05 | disposition home or self-care (01) | DRG 570 ==
LOC: ED 06:32 → SUR 09:03 → ED 09:03 → MEDSUR 11:20
PROVIDERS: ADMIT Family Medicine Adult Medicine; ATTEND Family Medicine Adult Medicine
PROC: IDWOUND (2017-11-04 13:52)

== ENCOUNTER 2019-09-26 20:32 | Inpatient (IN) ==
[2019-09-26] MEDS ORDERED: ONDANSETRON 4 MG/2 ML VIAL IV ONE (20:43)
[2019-09-26] MEDS ORDERED: 0.9 % SODIUM CHLORIDE 1,000 ML IV ONE ×2 (20:43→22:31)
[2019-09-26] MEDS ORDERED: LACTATED RINGERS 1,000 ML IV ONE (20:49)
--- NOTE | 2019-09-26 21:24 | Emergency Department Note ---
Weakness HPI - General Chief complaint: Weakness Stated complaint: Nause/ vomiting/diarrhea/ weakness Time Seen by Provider: 09/26/19 20:52 Source: family Mode of arrival: wheelchair Limitations: no limitations - History of Present Illness HPI Narrative: Patient arrives with his with third day now of vomiting and diarrhea. Today he is vomited 6 times, yesterday may be 8 times. He has had multiple episodes of diarrhea. His baseline is 10 to 12/day because of his previous total colectomy and he is been having more than double his numbers of bowel movements. He thinks he has urinated today. He is having body aches and chills and sweats and feels ill. No temperature checked at home. Has been very lightheaded and weak with a headache as well. Some shortness of breath. REVIEW OF SYSTEMS: Denies chest pain or palpitations Denies cough but feels short of breath. No wheezing Has steady abdominal pain across his abdomen. - Related Data Home Medications Medication Instructions Recorded Confirmed Budesonide EC 3 mg PO DAILY 03/28/18 03/28/18 Previous Rx's Medication Instructions Recorded Clindamycin HCl [Cleocin] 300 mg PO TID #30 cap 08/02/18 Allergies Allergy/AdvReac Type Severity Reaction Status Date / Time codeine Allergy Intermediate Rash Verified 08/02/18 21:03 Penicillins Allergy Intermediate Rash Verified 08/02/18 21:03 Past Medical History - Past Medical History [facility] Narrative: Medical History (Last Updated 09/26/19 @ 21:21 by Chapin Oates DO) History of Crohn's disease (Chronic) Familial adenomatous polyposis (Chronic) Past Surgical History (Last Updated 09/26/19 @ 21:21 by Chapin Oates DO) History of total colectomy (Resolved) History of exploratory laparotomy (Acute) History of surgery (Acute) History of surgical procedure (Acute) History of surgical procedure (Acute) Medical history: Reports: other (Crohn's disease. Denies: Pancreatitis, pyelonephritis, gallbladder disease, diverticulitis.). Denies: CAD (coronary artery disease), DM, kidney stones, PUD Psychiatric history: Reports: no psych history Surgical history ED: Reports: appendectomy, other (exploratory laparoscopy) - Social History smoking status: Current every day smoker Alcohol use: Reports: Unknown Drug use: Reports: unknown Physical Exam Limitations: no limitations General appearance: in no apparent distress, lethargic, malaise, sleepy, other (Laying still with eyes closed, ill-appearing.) Head: atraumatic, normocephalic Eye: Present: PERRL, EOMI. Absent: scleral icterus, conjunctival injection ENT: Present: mucous membranes dry (Partially), other (Normal midline tongue and uvula.) Neck: Present: trachea midline. Absent: lymphadenopathy, thyromegaly Chest: Present: symmetric chest wall rise Respiratory: Present: normal lung sounds bilaterally. Absent: respiratory distress, wheezes, stridor, accessory muscle use, prolonged expiratory phase Cardiovascular: Present: regular rate, normal rhythm, tachycardia. Absent: systolic murmur, diastolic murmur Abdominal: Present: soft, tenderness. Absent: distention, guarding, rebound, rigidity, organomegaly, mass Abdominal tenderness: Present: diffuse (More in the lower half), moderate Extremities: Absent: normal capillary refill (2 to 3 seconds in his fingers which are erythematous and cool.), pedal edema, pretibial edema, calf t enderness, cyanosis, clubbing Neurological: Present: alert (Only when spoken to and briefly. Is able to respond to questions with his eyes closed most of the time but voice is soft.), CN II-XII intact Psychiatric: Present: flat affect, serious, poor eye contact. Absent: depressed, agitated, anxious, tearful Skin: Present: cool, dry, erythema (Purplish erythema of digits with 2 to 3- second capillary refill.) Course Vital Signs Temperature 96.2 F L 09/26/19 20:33 Pulse Rate 97 H 09/26/19 20:33 Respiratory Rate 16 09/26/19 20:33 Blood Pressure 70/60 09/26/19 20:33 Pulse Oximetry (%) 98 09/26/19 20:33 Temperature 96.2 F L 09/26/19 20:33 Pulse Rate 97 H 09/26/19 20:33 Respiratory Rate 17 09/26/19 20:47 Blood Pressure 104/83 09/26/19 20:47 Pulse Oximetry (%) 95 09/26/19 20:47 Weakness - MDM Narrative Medical decision making narrative: Vomiting and diarrhea in an individual with total colectomy and reanastomosis who has a baseline of 10-12 bowel movements that are liquid per day. Suggests marked dehydration with his hypotension, tachycardia, poor capillary refill, obtundation, hypothermia. Multiple labs including lactic acid and blood cultures are obtained. - Lab Data Result diagrams: 09/26/19 20:54 Lab Results 09/26/19 Range/Units 20:54 Band Neutrophils % Not Reportable Disposition Pt seen by GOLF CADDY/PA only: No Clinical Impression: Nausea, vomiting and diarrhea Hypotension Qualifiers: Hypotension type: other hypotension type Qualified Code(s): I95.89 - Other hypotension Hypothermia Qualifiers: Encounter type: initial encounter Qualified Code(s): T68.XXXA - Hypothermia, initial encounter Summary: Due to change in shift patient's care transferred to Dr. Leonard Castorena who will further his evaluation and treatment and final disposition. Disposition: Still a Patient Referrals: No,PCP [Primary Care Provider] -
[2019-09-26 21:43] LABS: POC Blood Urea Nitrogen 43 mg/dl (6-20); POC CO2 20 mmol/L (22-30); POC Calcium, Ionized 0.98 mmol/L (1.16-1.32); POC Chloride 105 mmol/L (96-108); POC Creatinine 3.8 mg/dl (0.7-1.2); POC Glucose, Random 191 mg/dL (70-105); POC Potassium 5.8 mmol/L (3.3-5.1); POC Sodium 131 mmol/L (133-145)
[2019-09-26] MEDS: 0.9 % SODIUM CHLORIDE 1,000 ML IV SCH (21:46)
[2019-09-26 21:59] LABS: Hematocrit 53.8 % (41.0-55.0); Mean Cell Volume 78.1 fL (80.0-100.0); Mean Corpuscular HGB Conc 33.4 g/dL (31.0-36.0); Mean Platelet Volume 8.6 fL (7.4-10.4); Platelet Count 422 K/mcL (140-440); Red Cell Distribution Width 16.5 % (11.5-14.5); WBC 17.9 K/mcL (4.5-11.0)
[2019-09-26 22:25] LABS: ALT/SGPT 43 U/l (0-40); AST/SGOT 30 U/l (0-37); Albumin 5.9 gm/dL (3.2-5.2); Alkaline Phosphatase 119 U/L (39-117); Bilirubin,Total 0.4 mg/dL (0.0-1.0); Blood Urea Nitrogen 36 mg/dl (6-20); Calcium 10.7 mg/dl (8.6-10.4); Carbon Dioxide 16 mmol/L (22-30); Glomerular Filtration Rate 21; Glucose 222 mg/dL (70-105)
[2019-09-26 22:26] LABS: Albumin/Globulin Ratio 1.1 (1.0-2.3); Chloride 89 mmol/L (96-108); Globulin 5.3 gm/dL (2.2-3.7)
[2019-09-26 22:28] LABS: Anisocytosis 1+ (NONE SEEN); Eosinophils % (Manual) 5 % (0-7); Lymphocytes % 14 % (15-49); Microcytosis 1+ (NONE SEEN); Monocytes % (Manual) 1 % (1-12); Platelet Estimate NORMAL (NORMAL); Polychromasia 1+ (NONE SEEN); RBC Morphology ABNORM (NORMAL); Segmented Neutrophils % 80 % (38-78)
[2019-09-26] MEDS ORDERED: OSELTAMIVIR PHOSPHATE 75 MG CAPSULE PO ONE (22:55)
--- NOTE | 2019-09-26 23:06 | Emergency Department Note ---
Weakness HPI - General Chief complaint: Weakness Stated complaint: Nause/ vomiting/diarrhea/ weakness Time Seen by Provider: 09/26/19 20:52 Source: patient, family Mode of arrival: wheelchair Limitations: no limitations - History of Present Illness HPI Narrative: Patient is checked out to me by Dr. Oates at shift change. I reviewed his note and reinterviewed the patient Patient and his note a 3-day history of severe nausea vomiting diarrhea. O n the day of admission he was cyanotic lethargic this has improved with IV fluid administration - Related Data Home Medications Medication Instructions Recorded Confirmed No Known Home Meds 09/27/19 09/27/19 Allergies Allergy/AdvReac Type Severity Reaction Status Date / Time codeine Allergy Intermediate Rash Verified 08/02/18 21:03 Penicillins Allergy Intermediate Rash Verified 08/02/18 21:03 Past Medical History - Past Medical History Medical history: Reports: other (Crohn's disease. Denies: Pancreatitis, pyelonephritis, gallbladder disease, diverticulitis.). Denies: CAD (coronary artery disease), DM, kidney stones, PUD Psychiatric history: Reports: no psych history Surgical history ED: Reports: appendectomy, other (exploratory laparoscopy) - Social History smoking status: Current every day smoker Alcohol use: Reports: Unknown Drug use: Reports: unknown Physical Exam I will keep the patient to reassess him. He was resting comfortably. His forehead was mildly moist but not febrile or acutely diaphoretic. He was arousable and could answer questions appropriately. Abdomen was soft nontender nondistended. His limbs were no longer cyanotic he was breathing well-no respi ratory distress. Oxygen saturations were 100% on room air Limitations: no limitations General appearance: in no apparent distress, lethargic, malaise, sleepy, other (Laying still with eyes closed, ill-appearing.) Course Vital Signs Temperature 96.2 F L 09/26/19 20:33 Pulse Rate 97 H 09/26/19 20:33 Respiratory Rate 16 09/26/19 20:33 Blood Pressure 70/60 09/26/19 20:33 Pulse Oximetry (%) 98 09/26/19 20:33 Temperature 97.9 F 09/27/19 00:02 Pulse Rate 88 09/27/19 00:02 Respiratory Rate 16 09/27/19 00:02 Blood Pressure 126/73 09/27/19 00:02 Pulse Oximetry (%) 97 09/27/19 00:02 Weakness - Lab Data Lab results reviewed: Yes I reviewed the patient's lab results. Result diagrams: 09/26/19 20:54 09/26/19 21:25 Lab Results 09/26/19 09/26/19 09/26/19 Range/Units 20:54 21:25 21:25 WBC 17.9 H (4.5-11.0) K/mcL RBC 6.90 H (4.50-5.90) M/mcL Hgb 18.0 H (13.5-16.5) g/dL Hct 53.8 (41.0-55.0) % POC Hct 54.0 (41.0-55.0) % MCV 78.1 L (80.0-100.0) fL MCH 26.1 (26.0-34.0) pg MCHC 33.4 (31.0-36.0) g/dL RDW 16.5 H (11.5-14.5) % Plt Count 422 (140-440) K/mcL MPV 8.6 (7.4-10.4) fL Total Counted 100 Seg Neutrophils % 80 H (38-78) % Band Neutrophils % Not Reportable Lymphocytes % 14 L (15-49) % Monocytes % (Manual) 1 (1-12) % Eosinophils % (Manual) 5 (0-7) % Platelet Estimate Normal (NORMAL) RBC Morphology Abnorm A (NORMAL) Polychromasia 1+ A (NONE SEEN) Anisocytosis 1+ A (NONE SEEN) Microcytosis 1+ A (NONE SEEN) VBG Lactic Acid 2.1 H (0.5-2.0) mmol/L POC Sodium 131 L (133-145) mmol/L Sodium 128 L (133-145) mmol/L POC Potassium 5.8 H (3.3-5.1) mmol/L Potassium 5.0 (3.3-5.1) mmol/L POC Chloride 105 (96-108) mmol/L Chloride 89 L (96-108) mmol/L Carbon Dioxide 16 L (22-30) mmol/L POC Total CO2 20 L (22-30) mmol/L Anion Gap 23.0 H (8-16) POC BUN 43 H (6-20) mg/dl BUN 36 H (6-20) mg/dl Creatinine 3.6 H (0.7-1.2) mg/dl POC Creatinine 3.8 H (0.7-1.2) mg/dl GFR Calculation 21 Glucose 222 H (70-105) mg/dL POC Glucose 191 H (70-105) mg/dL Calcium 10.7 H (8.6-10.4) mg/dl POC WB Ioniz Calcium 0.98 L (1.16-1.32) mmol/L Magnesium (1.6-2.5) mg/dL Total Bilirubin 0.4 (0.0-1.0) mg/dL AST 30 (0-37) U/l ALT 43 H (0-40) U/l Alkaline Phosphatase 119 H (39-117) U/L Total Creatine Kinase (24-195) IU/L Total Protein 11.2 H (5.9-8.4) gm/dL Albumin 5.9 H (3.2-5.2) gm/dL Globulin 5.3 H (2.2-3.7) gm/dL Albumin/Globulin Ratio 1.1 (1.0-2.3) Lipase (7-60) U/L Urine Color Urine Appearance Urine pH (5.0-9.0) Ur Specific Alta (1.000-1.035) Urine Protein (NEG) mg/dL Urine Glucose (UA) (NEG) mg/dL Urine Ketones (NEG) mg/dL Urine Occult Blood (<0.03) mg/dL Urine Nitrate (NEG) Urine Bilirubin (NEG) mg/dL Urine Urobilinogen (NEG) mg/dL Ur Leukocyte Esterase (NEG) /uL Urine RBC (0-1) /hpf Urine WBC (0-4) /hpf Ur Squamous Epith Cells (0-4) /hpf Urine Bacteria (0) /hpf Hyaline Casts (0-2) /lpf Urine Mucus (0) /hpf Ur Culture Indicated? 09/26/19 09/26/19 09/26/19 Range/Units 21:25 21:30 22:55 WBC (4.5-11.0) K/mcL RBC (4.50-5.90) M/mcL Hgb (13.5-16.5) g/dL Hct (41.0-55.0) % POC Hct (41.0-55.0) % MCV (80.0-100.0) fL MCH (26.0-34.0) pg MCHC (31.0-36.0) g/dL RDW (11.5-14.5) % Plt Count (140-440) K/mcL MPV (7.4-10.4) fL Total Counted Seg Neutrophils % (38-78) % Band Neutrophils % Lymphocytes % (15-49) % Monocytes % (Manual) (1-12) % Eosinophils % (Manual) (0-7) % Platelet Estimate (NORMAL) RBC Morphology (NORMAL) Polychromasia (NONE SEEN) Anisocytosis (NONE SEEN) Microcytosis (NONE SEEN) VBG Lactic Acid (0.5-2.0) mmol/L POC Sodium (133-145) mmol/L Sodium (133-145) mmol/L POC Potassium (3.3-5.1) mmol/L Potassium (3.3-5.1) mmol/L POC Chloride (96-108) mmol/L Chloride (96-108) mmol/L Carbon Dioxide (22-30) mmol/L POC Total CO2 (22-30) mmol/L Anion Gap (8-16) POC BUN (6-20) mg/dl BUN (6-20) mg/dl Creatinine (0.7-1.2) mg/dl POC Creatinine (0.7-1.2) mg/dl GFR Calculation Glucose (70-105) mg/dL POC Glucose (70-105) mg/dL Calcium (8.6-10.4) mg/dl POC WB Ioniz Calcium (1.16-1.32) mmol/L Magnesium 2.4 (1.6-2.5) mg/dL Total Bilirubin (0.0-1.0) mg/dL AST (0-37) U/l ALT (0-40) U/l Alkaline Phosphatase (39-117) U/L Total Creatine Kinase 306 H (24-195) IU/L Total Protein (5.9-8.4) gm/dL Albumin (3.2-5.2) gm/dL Globulin (2.2-3.7) gm/dL Albumin/Globulin Ratio (1.0-2.3) Lipase 75 H (7-60) U/L Urine Color Yellow Urine Appearance Cloudy Urine pH 6.0 (5.0-9.0) Ur Specific Alta 1.020 (1.000-1.035) Urine Protein 100 A (NEG) mg/dL Urine Glucose (UA) Negative (NEG) mg/dL Urine Ketones Neg (NEG) mg/dL Urine Occult Blood 0.03 A (<0.03) mg/dL Urine Nitrate Neg (NEG) Urine Bilirubin Neg (NEG) mg/dL Urine Urobilinogen Neg (NEG) mg/dL Ur Leukocyte Esterase Neg (NEG) /uL Urine RBC 1 (0-1) /hpf Urine WBC 3 (0-4) /hpf Ur Squamous Epith Cells 0 (0-4) /hpf Urine Bacteria 0 (0) /hpf Hyaline Casts 203 H (0-2) /lpf Urine Mucus Many A (0) /hpf Ur Culture Indicated? No Disposition Pt seen by [employer]INTER/PA only: No Clinical Impression: Nausea, vomiting and diarrhea, Influenza, Dehydration Hypotension Qualifiers: Hypotension type: other hypotension type Qualified Code(s): I95.89 - Other hypotension Hypothermia Qualifiers: Encounter type: initial encounter Qualified Code(s): T68.XXXA - Hypothermia, initial encounter Acute renal failure Qualifiers: Acute renal failure type: unspecified Qualified Code(s): N17.9 - Acute kidney failure, unspecified Summary: Hypotension and cyanosis improved with IV fluid administration. He is on his third bag of IV fluid. Blood pressures have normalized He received Zofran for nausea and no further vomiting was seen. He did make some urine and this was sent off for microscopic exam Influenza test was positive for both A and B so Tamiflu was started His creatinine jumped to 3.8-likely from severe dehydration-prerenal. At this time he is making urine and does not require dialysis, so we will keep fluids going Patient will require inpatient admission to the severe nature of his acute renal failure and overall illness. I discussed first with the pediatric clinical dietician Dr. Valdez, she recommended keeping close track of his Is + Os. She was okay with us getting a CT scan of the abdomen and pelvis with oral contrast only I then discussed the case with hospitalist, Dr. Alonzo. He agreed to accept the patient for further care and evaluation in the hospital Disposition: Xfer As Inpt ([facility]) Condition: Critical Referrals: No,PCP [Primary Care Provider] - Rosette Valdez MD [Physician] -
[2019-09-26] MEDS ORDERED: DEXTROSE 31 GM ORAL.SUSP PO PRN (23:58)
[2019-09-26] MEDS ORDERED: DEXTROSE 50% 50 ML VIAL IV PRN (23:58)
[2019-09-27] LABS: Appearance,Urine CLOUDY; Bacteria,Urine 0 /hpf (0); Bilirubin,Urine NEG (NEG); Color,Urine YELLOW; Culture Indicated,Urine NO; Glucose,Urine (UA) NEGATIVE (NEG); Ketones,Urine NEG (NEG); Leukocyte Esterase,Urine NEG /uL (NEG); Mucus,Urine MANY /hpf (0); Nitrate,Urine NEG (NEG); Protein,Urine 100 mg/dL (NEG); Urine Blood 0.03 mg/dL (<0.03); Urine Hyaline Cast 203 /lpf (0-2); Urine RBC 1 /hpf (0-1); Urine Squamous Epithelial Cell 0 /hpf (0-4); Urine WBC 3 /hpf (0-4); Urobilinogen,Urine NEG (NEG)
--- NOTE | 2019-09-27 00:43 | Internal Med History&Physical ---
Medical - H&P: [facility] Patient information: Note initiated : 09/27/19 at 12:41 am Service Date, if different from initiated Date: [] Patient: Niko Cash a 33 y/o M admitted on for Nause/ vomiting/diarrhea/ weakness. Chief Complaint: [] History of present illness: Mr. Cash is a 33 year old M Presents the ED with nausea vomiting diarrhea this been occurring for 3 days. was diaphoretic and weak. Vomited 8 times yesterday 6 times today. Typically has 8-12 bowel movement per day since his previous total colectomy but that is doubled lately. He complained of body aches fever/chills and sweats. Complains of lightheadedness headache. Achy abdominal pain. No respiratory complaints. Denies bloody diarrhea. The ED he was found to be hypotensive on admit initially. An elevated white blood cell count and acute kidney injury. He is afebrile. He is saturating 100% on room air his extremities appeared cool to the touch initially in the ED. Which improved with volume resuscitation, received 3L in the ED. Rapid influenza test showed positive for both a and B and Tamiflu was started. Review of Systems: Positives as above. Denies /chest pain/cough/dyspnea. Remaining 10 point review of system reviewed negative. Medical - H&P: [facility] Medical history: Medical History (Last Updated 09/26/19 @ 21:31 by Chapin Oates DO) Obesity (BMI 30.0-34.9) (Chronic) History of Crohn's disease (Chronic) Familial adenomatous polyposis (Chronic) Past Surgical History (Last Updated 09/26/19 @ 21:21 by Chapin Oates DO) History of total colectomy (Resolved) History of exploratory laparotomy (Acute) History of surgery (Acute) History of surgical procedure (Acute) History of surgical procedure (Acute) Appy Family history: States his parents are healthy Social History (Last Updated 01/01/18 @ 16:23 by Gilberto Winter MD) 1/2 ppd Or alcohol Lives at home with family Medical - H&P: Meds Home Medications Medication Instructions Recorded Confirmed Type No Known Home Meds 09/27/19 09/27/19 History Allergies Allergy/AdvReac Type Severity Reaction Status Date / Time codeine Allergy Intermediate Rash Verified 10/07/18 21:03 Penicillins Allergy Intermediate Rash Verified 08/02/18 21:03 Medical - H&P: Exam - Constitutional Vitals: Temp Pulse Resp BP Pulse Ox 97.9 F 84 16 136/84 97 09/27/19 00:02 09/27/19 00:06 09/27/19 00:30 09/27/19 00:30 09/27/19 00:06 Exam: General: lethargic, No acute Distress Eyes/N/T: EOMI, PEERL, DMM Head/Neck: neck supple, normocephalic atraumatic CV: RRR, No murmurs, normal s1/s2 Pulm: Clear b/l, no wheezing/rhonchi/rales Abd: soft, nontender, +BS x4 Ext: no clubbing/cyanosis/edema Neuro: lethargic, no focal deficits, moves all extremities, CN 2-12 grossly intact, symmetrical strength b/l upper/lower, sensations intact b/l upper/lower Skin: warm/dry Medical - H&P: Reslt - Labs CBC & Chem 7: 09/26/19 20:54 09/26/19 21:25 Labs: Short CBC 09/26/19 Range/Units 20:54 WBC 17.9 H (4.5-11.0) K/mcL Hgb 18.0 H (13.5-16.5) g/dL Hct 53.8 (41.0-55.0) % Plt Count 422 (140-440) K/mcL BMP 09/26/19 21:25 Sodium 128 L Potassium 5.0 Chloride 89 L Carbon Dioxide 16 L BUN 36 H Creatinine 3.6 H Glucose 222 H Calcium 10.7 H Cardiac Enzymes 09/26/19 Range/Units 21:25 Total Creatine Kinase 306 H (24-195) IU/L Liver Function 09/26/19 Range/Units 21:25 Total Bilirubin 0.4 (0.0-1.0) mg/dL AST 30 (0-37) U/l ALT 43 H (0-40) U/l Alkaline Phosphatase 119 H (39-117) U/L Albumin 5.9 H (3.2-5.2) gm/dL Urine 09/26/19 Range/Units 22:55 Urine Color Yellow Urine Appearance Cloudy Urine pH 6.0 (5.0-9.0) Ur Specific [place] 1.020 (1.000-1.035) Urine Protein 100 A (NEG) mg/dL Urine Glucose (UA) Negative (NEG) mg/dL - Impressions CT abdomen pelvis no acute pathology. Medical - H&P: A/P - Narrative A/P Narrative: A: *Influenza: *Hypotension, hypovolemic: Responded to IV fluids *N/V/D (chronic diarrhea, but worse past several days): -CT abd/pelv no acute pathology *ANKIT: *Met acidosis: *Leukocytosis >15k gives concern for bacterial coinfection although has no respiratory symptoms, could also be component of reactive from n/v/d. *h/o Crohns s/p total colectomy: follows with Dr. nur, was on budesonide and ppi in past, no meds now *Hemoconcentrated labs *Hyponatremia: *Obesity: *Tobacco abuse: *Hyperglycemia: no reported history of DM, was on budesonide in past but not currently taking * P: -IVFs -monitor i/os, UOP -Nephro consult -Tamiflu, empiric abx for now while BC pending -check A1c, SSI -f/u am labs - -smoking cessation counseling -ppx: heparin
[2019-09-27] MEDS: 0.9 % SODIUM CHLORIDE 1,000 ML IV SCH ×4 (01:11→14:33)
[2019-09-27] MEDS ORDERED: ONDANSETRON 4 MG/2 ML VIAL IV PRN (01:39)
[2019-09-27] MEDS ORDERED: ACETAMINOPHEN 325 MG TABLET PO PRN (01:39)
[2019-09-27] MEDS ORDERED: VANCOMYCIN PER PHARMACY IV ONE (01:39)
[2019-09-27] MEDS ORDERED: IPRATROPIUM/ALBUTEROL 3 ML AMPUL.NEB NEB PRN (01:39)
[2019-09-27] MEDS ORDERED: DEXTROSE 50% 50 ML VIAL IV PRN (01:43)
[2019-09-27] MEDS ORDERED: DEXTROSE 31 GM ORAL.SUSP PO PRN (01:43)
[2019-09-27] MEDS ORDERED: VANCOMYCIN 1,500 MG in 0.9 % SODIUM CHLORIDE 500 ML IV ONE (02:14)
[2019-09-27] MEDS: CEFEPIME 2 GM VIAL IV SCH ×3 (02:24→14:34)
[2019-09-27] MEDS: 0.9 % SODIUM CHLORIDE 10 ML SYRINGE IV SCH ×3 (05:14→21:00)
--- NOTE | 2019-09-27 06:38 | Nephrology Consult Note ---
History of Present Illness - Reason for Consult Patient information: Note initiated : 09/27/19 at 6:34 am Service Date, if different from initiated Date: [] Patient: Niko Cash 33 y/o M admitted on 09/27/19 for Nause/ vomiting/diarrhea/ weakness. Chief Complaint: [] Requesting physician: Donavon Alonzo - Chief Complaint ANKIT - History of Present Illness 33-year-old male who presented with ED with nausea, vomiting, diarrhea x3 days. On arrival he was diaphoretic, weak, lethargic, hypotensive. He has familial adenomatous polyposis and history of Crohn disease, status post colectomy. He typically has approximately 8-12 bowel movements a day. She also complaining of body aches, chills, lightheadedness, abdominal pain. He was noted to have ANKIT with a serum creatinine of 3.6 from a baseline of 0.9 in October 2017. He was given IV fluids. His blood pressure responded to the IV fluids and he was nonoliguric. Influenza test was positive for a and B strain and Tamiflu was started. Review of systems pertinent positive per HPI, urine output decrease/concentrated urine. Otherwise negative Review of Systems Constitutional: as per HPI, chills, fever(s), lethargy Gastrointestinal: abdominal pain, diarrhea, nausea, vomiting Musculoskeletal: as per HPI Past History Past medical history: Crohn's, familial adenomatous polyposis, obesity with BMI 34 Past surgical history: History of total colectomy, exploratory laparotomy Past social history: Everyday smoker, , occasionally drinks alcohol. Medications and Allergies Home Medications Medication Instructions Recorded Confirmed Type No Known Home Meds 09/27/19 09/27/19 History Allergies Allergy/AdvReac Type Severity Reaction Status Date / Time codeine Allergy Intermediate Rash Verified 08/02/18 21:03 Penicillins Allergy Intermediate Rash Verified 08/02/18 21:03 Exam - Vital Signs Vital signs: Temp Pulse Resp BP Pulse Ox 36.3 C 80 20 147/87 98 09/27/19 01:50 09/27/19 05:40 09/27/19 05:40 09/27/19 05:40 09/27/19 05:40 - General Appearance General appearance: obese (BMI 34) EENT: ATNC Neck: no JVD Respiratory: clear (Nonlabored respirations) Cardiology: no rub, no gallops, regular rate, regular rhythm Gastrointestinal: normoactive bowel sounds, no guarding Additional exam: Skin is warm and dry Neuro: Initially asleep, wakes up easily and answers questions appropriately. Results - Lab Results 09/27/19 06:17 09/27/19 06:17 Most recent lab results Calcium 10.7 mg/dl (8.6-10.4) H 09/26/19 21:25 Magnesium 2.4 mg/dL (1.6-2.5) 09/26/19 21:30 Assessment and Plan (1) Stage 3 acute kidney injury Status: Acute - Narrative A/P Narrative: Baseline creatinine 0.9, EGFR 111 in October 2017.No data available for review since then. Serum creatinine 3.6 on arrival In the setting of nausea, vomiting, diarrhea. Prolonged prerenal state which can lead to ATN. She was hypotensive and lethargic on arrival Status post 4 L IV fluids. Reportedly nonoliguric no acute need for dialysis CT of the abdomen and pelvis report pending. I will review once available. Strict I's and O's, daily renal function panel, avoid nephrotoxins/IV contrast Hyponatremia Hypovolemic. Should improve with IV fluids. Acid-base Metabolic acidosis Within the limitation of not having a blood gas, secondary to GI losses and ANKIT Hemodynamics and volume Clinically euvolemic. On arrival he was hypotensive, responded well to IV fluids. Bone mineral Calcium was 10.7, in the setting of dehydration. Ionized calcium was 0.98. Pending a.m. labs.
--- NOTE | 2019-09-27 06:58 | Cat Scan Report ---
CLINICAL INFORMATION: Diarrhea, nausea, vomiting COMPARISON: Previous postcontrast enhanced CT scan dated 04/02/2011 TECHNIQUE: Axial images were obtained through the abdomen and pelvis. Sagittally and coronally reformatted images. Intravenous contrast material was not administered as this patient's creatinine measures 3.6 FINDINGS: Previous examination demonstrated probable colonic polyps. There has been apparent surgery with a midline abdominal incision. There is density in the distal sigmoid colon and rectum consistent with long suture line and apparent end-to-side colonic anastomosis Lung bases:Negative. No parenchymal infiltrate or mass. There is no pleural fluid. No pericardial fluid. Liver:Negative to the limits of noncontrast enhanced examination. No detectable mass. Liver contour is smooth Gallbladder, billary:No calcified gallstones. No gallbladder wall thickening. No dilated bile ducts Spleen:Negative. No splenomegaly Pancreas:Negative. No pancreatic mass. No peripancreatic abnormality Adrenal glands:Negative. No adrenal nodule Kidneys, ureters, bladder:Kidneys are negative to the limits of noncontrast enhanced examination. No obstructing or nonobstructing calculi. There is no hydronephrosis. No detectable mass. No ureteral or bladder stone. Gastrointestinal:Apparent suture line in the rectum and distal sigmoid colon. There is an appearance consistent with end to side colonic anastomosis. There is a suture line in the right side of the abdomen. It is difficult to be certain whether this patient has undergone previous colectomy with dilated gas-filled small bowel. Clinical correlation necessary. Previous examination demonstrated enhancing polyps. Contrast material was not administered. No detectable colonic polyps identified on present examination. No detectable mass. No evidence for appendicitis. No dilated small bowel. Vascular:The abdominal aorta is negative. Lymphatic:No retroperitoneal or mesenteric adenopathy. Mesentery, peritoneum:No free intraperitoneal fluid. No intra-abdominal abscess. No pneumoperitoneum. No biliary or portal venous gas. Reproductive:No prostatic enlargement Musculoskeletal:Lumbar spine, sacrum, pelvis are negative. Hips are negative. There is a small umbilical hernia. There is a small supraumbilical hernia. Supraumbilical hernia defect measures approximately 15 mm x 24 mm. There is no herniated bowel. No bowel obstruction. Examination was initially interpreted by [facility] IMPRESSION: 1. Previous surgery with probable colectomy. 2. No mechanical small bowel obstruction. 3. Small anterior abdominal wall hernia is probably postsurgical 4. Elevated creatinine. There is no hydronephrosis or hydroureter The exam was performed using radiation dose optimization techniques including, but not limited to, automated exposure control, adjustment of the mA and/or kV according to patient size and use of iterative reconstruction technique. Interpreted and Authenticated by: Valeriano Zhao 09/27/19
[2019-09-27 07:12] LABS: Hematocrit 45.3 % (41.0-55.0); Hemoglobin 14.5 g/dL (13.5-16.5); Mean Cell Volume 80.5 fL (80.0-100.0); Mean Corpuscular HGB Conc 31.9 g/dL (31.0-36.0); Mean Platelet Volume 8.3 fL (7.4-10.4); Platelet Count 293 K/mcL (140-440); RBC 5.63 M/mcL (4.50-5.90); Red Cell Distribution Width 17.7 % (11.5-14.5); WBC 11.5 K/mcL (4.5-11.0)
--- NOTE | 2019-09-27 07:25 | Internal Med Progress Note ---
Medical - PN: Subj Patient information: Note initiated : 09/27/19 at 7:20 am Service Date, if different from initiated Date: [] Patient: Niko Cash a 33 y/o M admitted on 09/27/19 for Nause/ vomiting/diarrhea/ weakness. Chief Complaint: [] Interval history: Mr. Cash is a 33 year old M Presents the ED with nausea vomiting diarrhea this been occurring for 3 days. was diaphoretic and weak. Vomited 8 times yesterday 6 times today. Typically has 8-12 bowel movement per day since his previous total colectomy but that is doubled lately. He complained of body aches fever/chills and sweats. Complains of lightheadedness headache. Achy abdominal pain. No respiratory complaints. Denies bloody diarrhea. The ED he was found to be hypotensive on admit initially. An elevated white blood cell count and acute kidney injury. He is afebrile. He is saturating 100% on room air his extremities appeared cool to the touch initially in the ED. Which improved with volume resuscitation, received 3L in the ED. Rapid influenza test showed positive for both a and B and Tamiflu was started. 09/27 Feeling much better. Still weak but significantly improved. Blood pressure stable, output has improved from the ER. He feels his stool frequency has improved significantly. He denies any nausea or vomiting. Review of Systems: denies headache/fever/chills/nausea/vomiting/chest or abdominal pain/cough/dyspnea. Otherwise see above. - Constitutional Vitals: Vital Signs Temp Pulse Resp BP Pulse Ox 97.5 F 85 20 134/73 98 09/27/19 06:40 09/27/19 06:40 09/27/19 06:40 09/27/19 06:40 09/27/19 07:00 Period Temp Pulse Resp BP Sys/Garcia Pulse Ox Last 24 Hr 96.2 F-98.3 F 70-97 7-20 56-159/39-92 95-100 Intake and Output 09/26/19 09/27/19 09/27/19 21:59 05:59 13:59 Intake Total 1999 2268 Balance 19999 Weight 111.13 kg 114.169 kg Intake & Output: Intake & Output 09/26/19 09/27/19 09/27/19 21:59 05:59 13:59 Intake Total 1999 2268 Balance 1999 2268 Weight 111.13 kg 114.169 kg Intake: IV 1999 2018 Sodium Chloride 0.9% 1,000 ml @ 1000 2019 20 mls/hr IV .Q24H RAFAELA Rx#: [id number] Lactated Ringers 1,000 ml @ 1000 Wide Open IV BOLUS ONE Rx#: [id number] Oral 250 Other: Stool Size Small Stool Color Brown Stool Consistency Soft # Voids 1 1 # Bowel Movements 1 Exam: General: Awake, No acute Distress, obese Eyes/N/T: EOMI, Head/Neck: neck supple, CV: RRR, No murmurs, Pulm: Clear b/l, no wheezing/rhonchi/rales Abd: soft, nontender, +BS x4 Ext: no clubbing/cyanosis/edema Neuro: Awake and more alert, no focal deficits, moves all extremities, Skin: warm/dry Medical - PN: Obj Da - Labs CBC & Chem 7: 09/27/19 06:17 09/26/19 21:25 Labs: Abnormal Lab Results 09/27/19 09/27/19 09/26/19 06:17 06:17 22:55 WBC 11.5 H RBC Hgb MCV MCH 25.7 L RDW 17.7 H Seg Neutrophils % Lymphocytes % RBC Morphology Polychromasia Anisocytosis Microcytosis VBG Lactic Acid < 0.2 L POC Sodium Sodium POC Potassium Chloride Carbon Dioxide POC Total CO2 Anion Gap POC BUN BUN Creatinine POC Creatinine Glucose POC Glucose Calcium POC WB Ioniz Calcium ALT Alkaline Phosphatase Total Creatine Kinase Total Protein Albumin Globulin Lipase Urine Protein 100 A Urine Occult Blood 0.03 A Hyaline Casts 203 H Urine Mucus Many A 09/26/19 09/26/19 09/26/19 21:30 21:25 21:25 WBC RBC Hgb MCV MCH RDW Seg Neutrophils % Lymphocytes % RBC Morphology Polychromasia Anisocytosis Microcytosis VBG Lactic Acid 2.1 H POC Sodium Sodium POC Potassium Chloride Carbon Dioxide POC Total CO2 Anion Gap POC BUN BUN Creatinine POC Creatinine Glucose POC Glucose Calcium POC WB Ioniz Calcium ALT Alkaline Phosphatase Total Creatine Kinase 306 H Total Protein Albumin Globulin Lipase 75 H Urine Protein Urine Occult Blood Hyaline Casts Urine Mucus 09/26/19 09/26/19 21:25 20:54 WBC 17.9 H RBC 6.90 H Hgb 18.0 H MCV 78.1 L MCH RDW 16.5 H Seg Neutrophils % 80 H Lymphocytes % 14 L RBC Morphology Abnorm A Polychromasia 1+ A Anisocytosis 1+ A Microcytosis 1+ A VBG Lactic Acid POC Sodium 131 L Sodium 128 L POC Potassium 5.8 H Chloride 89 L Carbon Dioxide 16 L POC Total CO2 20 L Anion Gap 23.0 H POC BUN 43 H BUN 36 H Creatinine 3.6 H POC Creatinine 3.8 H Glucose 222 H POC Glucose 191 H Calcium 10.7 H POC WB Ioniz Calcium 0.98 L ALT 43 H Alkaline Phosphatase 119 H Total Creatine Kinase Total Protein 11.2 H Albumin 5.9 H Globulin 5.3 H Lipase Urine Protein Urine Occult Blood Hyaline Casts Urine Mucus Meds: Medications Acetaminophen (Tylenol) 650 mg PO Q6HP PRN PRN Reason: PAIN/FEVER > 101 Albuterol/Ipratropium (Duoneb) 3 ml NEB Q4HP PRN PRN Reason: Shortness Of Breath Cefepime HCl (Maxipime) 2 gm IV Q12H [facility]; Protocol Last Admin: 09/27/19 02:24 Dose: 2 gm Documented by: Dextrose (Dextrose 50%) 0 ml IV UD PRN PRN Reason: Hypoglycemia Diagnostic Test (Pha) (Accu-Chek) 1 each FS ACHS [facility] Glucose (Insta-Glucose) 15 gm PO PRN PRN PRN Reason: Hypoglycemia Heparin Sodium (Porcine) (Heparin) 5,000 unit SQ Q12 RAFAELA Sodium Chloride (Sodium Chloride 0.9%) 1,000 mls @ 125 mls/hr IV .Q8H [facility] Last Infusion: 09/27/19 00:54 Dose: Infused Documented by: Sodium Chloride (Sodium Chloride 0.9%) 1,000 mls @ 20 mls/hr IV .Q24H [facility] Last Infusion: 09/27/19 01:45 Dose: Infused Documented by: Insulin Human Lispro (Humalog) 0 unit SQ ACHS [facility]; Protocol Ondansetron HCl (Zofran) 4 mg IV Q4HP PRN PRN Reason: Nausea And Vomiting Oseltamivir Phosphate (Oseltamivir Phosphate) 30 mg PO DAILY [facility] Sodium Chloride (Saline Flush) 10 ml IV Q8 [facility] Last Admin: 09/27/19 05:14 Dose: Not Given Documented by: Medical - PN: A/P - Time Spent With Patient Total time spent is greater than 50% in coordination of care (as documented) at patient's floor/unit and/or counseling patient: - Narrative A/P Narrative: A: *Influenza (+) in ED: *Hypotension, hypovolemic: Responded to IV fluids *N/V/D (chronic diarrhea, but worse past several days): -CT abd/pelv no acute pathology -improving we can see if diarrhea *ANKIT: *Met acidosis: *Leukocytosis >15k gives concern for bacterial coinfection although has no respiratory symptoms, could also be component of reactive from n/v/d. *h/o Crohns s/p total colectomy: follows with Dr. nur, was on budesonide and ppi in past, no meds now *Hemoconcentrated labs *Hyponatremia: *Obesity: *Tobacco abuse: *Prediabetes: A1c 6.4 * P: -IVFs -monitor i/os, UOP -Nephro consult -Tamiflu, empiric abx for now while BC pending -SSI, DM education and lifestyle changes -f/u am labs -smoking cessation counseling -ppx: heparin
[2019-09-27] MEDS ORDERED: INSULIN LISPRO 1 UNIT/0.01 ML UNIT SQ SCH (07:30)
[2019-09-27 07:33] LABS: Hemoglobin A1C 6.4 % HGB (4.0-6.0)
[2019-09-27 07:45] LABS: Anisocytosis 1+ (NONE SEEN); Eosinophils % (Manual) 3 % (0-7); Hypochromasia 1+ (NONE SEEN); Lymphocytes % 7 % (15-49); Monocytes % (Manual) 5 % (1-12); Platelet Estimate NORMAL (NORMAL); Polychromasia 1+ (NONE SEEN); RBC Morphology ABNORM (NORMAL); Segmented Neutrophils % 85 % (38-78)
[2019-09-27] MEDS: INSULIN LISPRO 1 UNIT/0.01 ML UNIT SQ SCH ×4 (07:47→20:59)
[2019-09-27] MEDS ORDERED: OSELTAMIVIR PHOSPHATE 30 MG CAPSULE PO SCH (09:00)
[2019-09-27] MEDS ORDERED: HEPARIN 5,000 UNIT/ML VIAL SQ SCH (09:00)
[2019-09-27] MEDS: HEPARIN 5,000 UNIT/ML VIAL SQ SCH ×2 (09:11→20:57)
[2019-09-27 10:37] LABS: ALT/SGPT 28 U/l (0-40); AST/SGOT 19 U/l (0-37); Albumin 3.9 gm/dL (3.2-5.2); Alkaline Phosphatase 75 U/L (39-117); Bilirubin,Direct < 0.2 mg/dL (0.0-0.3); Bilirubin,Total 0.4 mg/dL (0.0-1.0); Blood Urea Nitrogen 29 mg/dl (6-20); Glucose 122 mg/dL (70-105); Lactate Dehydrogenase 154 U/L (94-250); Phosphorous 2.7 mg/dL (2.7-4.5); Triglycerides 152 mg/dl (<150); Uric Acid 9.2 mg/dL (2.5-8.0)
[2019-09-27 10:42] LABS: Albumin/Globulin Ratio 1.1 (1.0-2.3); Calcium 8.4 mg/dl (8.6-10.4); Carbon Dioxide 20 mmol/L (22-30); Chloride 103 mmol/L (96-108); Globulin 3.4 gm/dL (2.2-3.7); Glomerular Filtration Rate 48
[2019-09-27] MEDS ORDERED: VANCOMYCIN PER PHARMACY IV SCH (11:15)
[2019-09-27] MEDS: VANCOMYCIN 1,500 MG in 0.9 % SODIUM CHLORIDE 500 ML IV SCH ×2 (11:57→23:36)
[2019-09-27] MEDS: OSELTAMIVIR PHOSPHATE 75 MG CAPSULE PO SCH (20:59)
[2019-09-28] MEDS: CEFEPIME 2 GM VIAL IV SCH (02:51)
[2019-09-28] MEDS: 0.9 % SODIUM CHLORIDE 1,000 ML IV SCH ×2 (02:52→05:29)
[2019-09-28] MEDS: 0.9 % SODIUM CHLORIDE 10 ML SYRINGE IV SCH ×3 (04:50→21:29)
[2019-09-28 05:36] LABS: Basophils # (Auto) 0 K/mcL (0.0-0.3); Basophils % (Auto) 0.5 % (0.0-2.0); Eosinophils # (Auto) 0.7 K/mcL (0.0-0.7); Hematocrit 39.2 % (41.0-55.0); Hemoglobin 12.9 g/dL (13.5-16.5); Lymphocytes # (Auto) 1.4 K/mcL (1.5-4.8); Mean Cell Volume 78.9 fL (80.0-100.0); Mean Corpuscular HGB Conc 32.9 g/dL (31.0-36.0); Mean Platelet Volume 8.5 fL (7.4-10.4); Monocytes # (Auto) 0.4 K/mcL (0.1-0.9); Monocytes % (Auto) 6.5 % (1.0-12.0); Platelet Count 286 K/mcL (140-440); RBC 4.97 M/mcL (4.50-5.90); Red Cell Distribution Width 16.8 % (11.5-14.5); WBC 6.9 K/mcL (4.5-11.0)
[2019-09-28 05:43] LABS: Bilirubin,Direct < 0.2 mg/dL (0.0-0.3); Chloride 104 mmol/L (96-108)
[2019-09-28 05:44] LABS: ALT/SGPT 24 U/l (0-40); AST/SGOT 18 U/l (0-37); Albumin 3.7 gm/dL (3.2-5.2); Albumin/Globulin Ratio 1.2 (1.0-2.3); Alkaline Phosphatase 67 U/L (39-117); Bilirubin,Total 0.3 mg/dL (0.0-1.0); Blood Urea Nitrogen 20 mg/dl (6-20); Calcium 8.3 mg/dl (8.6-10.4); Carbon Dioxide 24 mmol/L (22-30); Glomerular Filtration Rate 87; Glucose 123 mg/dL (70-105); Lactate Dehydrogenase 185 U/L (94-250); Phosphorous 1.9 mg/dL (2.7-4.5); Triglycerides 154 mg/dl (<150); Uric Acid 6.3 mg/dL (2.5-8.0)
[2019-09-28] MEDS: INSULIN LISPRO 1 UNIT/0.01 ML UNIT SQ SCH ×4 (08:08→21:28)
--- NOTE | 2019-09-28 08:15 | Internal Med Progress Note ---
Medical - PN: Subj Patient information: Note initiated : 09/28/19 at 8:09 am Service Date, if different from initiated Date: [] Patient: Niko Cash a 33 y/o M admitted on 09/27/19 for Nausea/vomiting/diarrhea/weakness. Chief Complaint: [] Interval history: Mr. Cash is a 33 year old M Presents the ED with nausea vomiting diarrhea this been occurring for 3 days. was diaphoretic and weak. Vomited 8 times yesterday 6 times today. Typically has 8-12 bowel movement per day since his previous total colectomy but that is doubled lately. He complained of body aches fever/chills and sweats. Complains of lightheadedness headache. Achy abdominal pain. No respiratory complaints. Denies bloody diarrhea. The ED he was found to be hypotensive on admit initially. An elevated white blood cell count and acute kidney injury. He is afebrile. He is saturating 100% on room air his extremities appeared cool to the touch initially in the ED. Which improved with volume resuscitation, received 3L in the ED. Rapid influenza test showed positive for both a and B and Tamiflu was started. 09/27 Feeling much better. Still weak but significantly improved. Blood pressure stable, output has improved from the ER. He feels his stool frequency has improved significantly. He denies any nausea or vomiting. 09/28 Feeling even better today. Weakness is improving. Feels diarrhea is back to baseline. Renal function significantly improved. Finish IV fluids, replete phosphorus and likely plan for DC in the morning. Review of Systems: denies headache/fever/chills/nausea/vomiting/chest or abdominal pain/cough/dyspnea. Otherwise see above. - Constitutional Vitals: Vital Signs Temp Pulse Resp BP Pulse Ox 97.3 F 69 20 137/97 98 09/28/19 04:01 09/28/19 07:35 09/28/19 04:01 09/28/19 06:00 09/28/19 04:01 Period Temp Pulse Resp BP Sys/Garcia Pulse Ox Last 24 Hr 97.3 F-97.9 F 69-94 14-20 135-162/61-97 96-99 Intake and Output 09/27/19 09/28/19 09/28/19 21:59 05:59 13:59 Intake Total 1400 2140 Output Total 920 Balance 1400 1220 Weight 115.984 kg Intake & Output: Intake & Output 09/27/19 09/28/19 09/28/19 21:59 05:59 13:59 Intake Total 1400 2140 Output Total 920 Balance 1400 1220 Weight 115.984 kg Intake: IV 500 1500 Sodium Chloride 0.9% 1,000 ml @ 1000 75 mls/hr IV .[id number] [facility] Rx#: [id number] Vancomycin 1,500 mg In Sodium 500 500 Chloride 0.9% 500 ml @ 333.3 mls/hr IV Q12H [facility] Rx#: [id number] Oral 640 Tube Feeding 900 Output: Void Amount 920 Other: Meal Dinner snack Percent of Meal Consumed 75% 100% Feeding Ability Assist with Tray Set Up Assist with Tray Set Up Urine Appearance Clear Urine Color Dark Yellow Urine Odor Normal Stool Size Small Stool Color Brown Stool Consistency Soft Loose # Voids 1 # Bowel Movements 1 1 Exam: General: Awake, No acute Distress, obese Eyes/N/T: EOMI, Head/Neck: neck supple, CV: RRR, No murmurs, Pulm: Clear b/l, no wheezing/rhonchi/rales Abd: soft, nontender, +BS x4 Ext: no clubbing/cyanosis/edema Neuro: Awake and more alert, no focal deficits, moves all extremities, Skin: warm/dry Medical - PN: Obj Da - Labs CBC & Chem 7: 09/28/19 04:15 09/28/19 04:15 Labs: Abnormal Lab Results 09/28/19 09/28/19 09/27/19 04:15 04:15 06:17 WBC RBC Hgb 12.9 L Hct 39.2 L MCV 78.9 L MCH 25.9 L RDW 16.8 H Eos % (Auto) 10.0 H Lymph # (Auto) 1.4 L Seg Neutrophils % Lymphocytes % RBC Morphology Polychromasia Hypochromasia Anisocytosis Microcytosis VBG Lactic Acid < 0.2 L POC Sodium Sodium POC Potassium Chloride Carbon Dioxide POC Total CO2 Anion Gap 7.0 L POC BUN BUN Creatinine POC Creatinine Glucose 123 H POC Glucose Hemoglobin A1c Uric Acid Calcium 8.3 L POC WB Ioniz Calcium Phosphorus 1.9 L ALT Alkaline Phosphatase Total Creatine Kinase Total Protein Albumin Globulin Triglycerides 154 H Lipase Urine Protein Urine Occult Blood Hyaline Casts Urine Mucus 09/27/19 09/27/19 09/27/19 06:17 06:17 06:17 WBC 11.5 H RBC Hgb Hct MCV MCH 25.7 L RDW 17.7 H Eos % (Auto) Lymph # (Auto) Seg Neutrophils % 85 H Lymphocytes % 7 L RBC Morphology Abnorm A Polychromasia 1+ A Hypochromasia 1+ A Anisocytosis 1+ A Microcytosis VBG Lactic Acid POC Sodium Sodium POC Potassium Chloride Carbon Dioxide 20 L POC Total CO2 Anion Gap POC BUN BUN 29 H Creatinine 1.8 H POC Creatinine Glucose 122 H POC Glucose Hemoglobin A1c 6.4 H Uric Acid 9.2 H Calcium 8.4 L POC WB Ioniz Calcium Phosphorus ALT Alkaline Phosphatase Total Creatine Kinase Total Protein Albumin Globulin Triglycerides 152 H Lipase Urine Protein Urine Occult Blood Hyaline Casts Urine Mucus 09/26/19 09/26/19 09/26/19 22:55 21:30 21:25 WBC RBC Hgb Hct MCV MCH RDW Eos % (Auto) Lymph # (Auto) Seg Neutrophils % Lymphocytes % RBC Morphology Polychromasia Hypochromasia Anisocytosis Microcytosis VBG Lactic Acid POC Sodium Sodium POC Potassium Chloride Carbon Dioxide POC Total CO2 Anion Gap POC BUN BUN Creatinine POC Creatinine Glucose POC Glucose Hemoglobin A1c Uric Acid Calcium POC WB Ioniz Calcium Phosphorus ALT Alkaline Phosphatase Total Creatine Kinase 306 H Total Protein Albumin Globulin Triglycerides Lipase 75 H Urine Protein 100 A Urine Occult Blood 0.03 A Hyaline Casts 203 H Urine Mucus Many A 09/26/19 09/26/19 09/26/19 21:25 21:25 20:54 WBC 17.9 H RBC 6.90 H Hgb 18.0 H Hct MCV 78.1 L MCH RDW 16.5 H Eos % (Auto) Lymph # (Auto) Seg Neutrophils % 80 H Lymphocytes % 14 L RBC Morphology Abnorm A Polychromasia 1+ A Hypochromasia Anisocytosis 1+ A Microcytosis 1+ A VBG Lactic Acid 2.1 H POC Sodium 131 L Sodium 128 L POC Potassium 5.8 H Chloride 89 L Carbon Dioxide 16 L POC Total CO2 20 L Anion Gap 23.0 H POC BUN 43 H BUN 36 H Creatinine 3.6 H POC Creatinine 3.8 H Glucose 222 H POC Glucose 191 H Hemoglobin A1c Uric Acid Calcium 10.7 H POC WB Ioniz Calcium 0.98 L Phosphorus ALT 43 H Alkaline Phosphatase 119 H Total Creatine Kinase Total Protein 11.2 H Albumin 5.9 H Globulin 5.3 H Triglycerides Lipase Urine Protein Urine Occult Blood Hyaline Casts Urine Mucus Meds: Medications Acetaminophen (Tylenol) 650 mg PO Q6HP PRN PRN Reason: PAIN/FEVER > 101 Albuterol/Ipratropium (Duoneb) 3 ml NEB Q4HP PRN PRN Reason: Shortness Of Breath Cefepime HCl (Maxipime) 2 gm IV Q12H [facility]; Protocol Last Admin: 09/28/19 02:51 Dose: 2 gm Documented by: Dextrose (Dextrose 50%) 0 ml IV UD PRN PRN Reason: Hypoglycemia Diagnostic Test (Pha) (Accu-Chek) 1 each FS [facility] Last Admin: 09/28/19 08:07 Dose: 1 each Documented by: Glucose (Insta-Glucose) 15 gm PO PRN PRN PRN Reason: Hypoglycemia Heparin Sodium (Porcine) (Heparin) 5,000 unit SQ Q12 [facility] Last Admin: 09/27/19 20:57 Dose: 5,000 unit Documented by: Sodium Chloride (Sodium Chloride 0.9%) 1,000 mls @ 20 mls/hr IV .Q24H [facility] Last Admin: 09/28/19 02:52 Dose: Not Given Documented by: Sodium Chloride (Sodium Chloride 0.9%) 1,000 mls @ 75 mls/hr IV .[id number] [facility] Last Admin: 09/28/19 05:29 Dose: 75 mls/hr Documented by: Vancomycin HCl 1,500 mg/ (Sodium Chloride) 500 mls @ 333.3 mls/hr IV Q12H [facility] Last Infusion: 09/28/19 01:07 Dose: Infused Documented by: Insulin Human Lispro (Humalog) 0 unit SQ [facility]; Protocol Last Admin: 09/28/19 08:08 Dose: Not Given Documented by: Ondansetron HCl (Zofran) 4 mg IV Q4HP PRN PRN Reason: Nausea And Vomiting Oseltamivir Phosphate (Tamiflu) 75 mg PO BID [facility] Last Admin: 09/27/19 20:59 Dose: 75 mg Documented by: Sodium Chloride (Saline Flush) 10 ml IV Q8 [facility] Last Admin: 09/28/19 04:50 Dose: 10 ml Documented by: Vancomycin HCl (Vancomycin Per Pharmacy) 1 order [place] [facility] [place] - PN: A/P - Time Spent With Patient Total time spent is greater than 50% in coordination of care (as documented) at patient's floor/unit and/or counseling patient: - Narrative A/P Narrative: A: *Influenza (+) in ED: *Hypotension, hypovolemic: Responded to IV fluids *N/V/D (chronic diarrhea, but worse past several days [employer]): -CT abd/pelv no acute pathology -improving frequency of diarrhea *ANKIT: resolved *Met acidosis: resolved *Leukocytosis >15k gives concern for bacterial coinfection although has no respiratory symptoms, could also be component of reactive from n/v/d. -BC neg, afebrile, *h/o Crohns s/p total colectomy: follows with Dr. nur, was on budesonide and ppi in past, no meds now *Hemoconcentrated labs: improved *Hyponatremia: resolved *Obesity: *Tobacco abuse: *Prediabetes: A1c 6.4 P: -IVFs finish -monitor i/os, UOP -Tamiflu, d/c abx -SSI, DM education and lifestyle changes -smoking cessation counseling -ppx: heparin
[2019-09-28] MEDS: OSELTAMIVIR PHOSPHATE 75 MG CAPSULE PO SCH ×2 (09:00→21:29)
[2019-09-28] MEDS: HEPARIN 5,000 UNIT/ML VIAL SQ SCH (09:00)
[2019-09-28] MEDS ORDERED: NEUTRA PHOS 1 PACKET PO SCH (09:00)
[2019-09-28] MEDS ORDERED: FLU VACC QS2019-20(6MOS UP)/PF 60 MCG/0.5 ML SYRINGE IM ONE (10:00)
--- NOTE | 2019-09-28 10:42 | Discharge Summary ---
Medical - DS: Prov Patient information: Note initiated : 09/28/19 at 10:40 am Service Date, if different from initiated Date: [] Patient: Niko Cash 33 y/o M admitted on 09/27/19 for Nausea/vomiting/diarrhea/weakness. Chief Complaint: [] Date of admission: 09/27/19 01:26 Discharge date: 09/29/19 Primary care physician: PCP No Consults: 09/27/19 01:39 Consult to Physician [CONS] Routine Comment: Consulting Provider: Rosette Valdez Reason For Exam: Physician to Consult 09/27/19 09:17 Consult to Physician [CONS] Routine Comment: Consulting Provider: Donavon Alonzo Reason For Exam: Physician to Consult Medical - DS: Meds - Discharge Medications Prescriptions: Oseltamivir Phosphate [Tamiflu] 75 mg PO BID #5 cap Active and Home Medications: Home Medications No Known Home Meds 09/27/19 [History Confirmed 09/27/19 Last Taken Unknown] Medical - DS: Hosp Hospital Course: A: *Influenza (+) in ED: *Hypotension, hypovolemic: Responded to IV fluids *N/V/D (chronic diarrhea, but worse past several days [employer]): -CT abd/pelv no acute pathology -improving frequency of diarrhea *ANKIT: resolved *Met acidosis: resolved *Leukocytosis >15k gives concern for bacterial coinfection although has no respiratory symptoms, could also be component of reactive from n/v/d. -BC neg, afebrile, *h/o Crohns s/p total colectomy: follows with Dr. nur, was on budesonide and ppi in past, no meds now *Hemoconcentrated labs: improved *Hyponatremia: resolved *Obesity: *Tobacco abuse: Mr. Cash is a 33 year old M Presents the ED with nausea vomiting diarrhea this been occurring for 3 days. was diaphoretic and weak. Vomited 8 times yesterday 6 times today. Typically has 8-12 bowel movement per day since his previous total colectomy but that is doubled lately. He complained of body aches fever/chills and sweats. Complains of lightheadedness headache. Achy abdominal pain. No respiratory complaints. Denies bloody diarrhea. The ED he was found to be hypotensive on admit initially. An elevated white blood cell count and acute kidney injury. He is afebrile. He is saturating 100% on room air his extremities appeared cool to the touch initially in the ED. Which improved with volume resuscitation, received 3L in the ED. Rapid influenza test showed positive for both a and B and Tamiflu was started. 09/27 Feeling much better. Still weak but significantly improved. Blood pressure stable, output has improved from the ER. He feels his stool frequency has improved significantly. He denies any nausea or vomiting. 09/28 Feeling even better today. Weakness is improving. Feels diarrhea is back to baseline. Renal function significantly improved. Finish IV fluids, replete phosphorus and likely plan for DC in the morning. 09/29 Doing well, significantly improved. Stable for discharge Discharge diagnosis: Influenza hypotension nausea vomiting diarrhea acute kidney injury Secondary discharge diagnosis: Robotic acidosis history of Crohn's hyponatremia obesity tobacco abuse prediabetes - Time Spent with Patient Total time spent providing and/or coordinating discharge services: Greater than 30 minutes Medical - DS: Exam - Constitutional Vitals: Vital Signs Temp Pulse Pulse Resp BP BP Pulse Ox 09/28/19 08:28 97.8 F 73 18 143/93 100 09/28/19 07:35 69 09/28/19 06:01 137/97 09/28/19 06:00 137/97 09/28/19 05:35 69 09/28/19 04:01 97.3 F 20 162/95 98 09/28/19 02:01 143/89 09/28/19 00:07 79 96 09/28/19 00:01 97.6 F 20 153/97 96 09/27/19 22:01 20 139/90 09/27/19 20:22 137/85 09/27/19 20:18 97.9 F 81 20 137/85 96 09/27/19 20:00 97.9 F 78 20 137/85 96 09/27/19 16:00 97.7 F 94 H 16 153/79 99 09/27/19 14:00 94 H 14 135/61 97 09/27/19 11:00 97.5 F 92 H 14 148/88 99 Intake and Output 09/27/19 09/28/19 09/28/19 21:59 05:59 13:59 Intake Total 1400 2140 Output Total 920 Balance 1400 1220 Intake: IV 500 1500 Sodium Chloride 0.9% 1,000 ml @ 1000 75 mls/hr IV .[id number] [facility] Rx#: [id number] Vancomycin 1,500 mg In Sodium 500 500 Chloride 0.9% 500 ml @ 333.3 mls/hr IV Q12H [facility] Rx#: [id number] Oral 640 Tube Feeding 900 Output: Void Amount 920 Other: Meal Dinner snack Breakfast Percent of Meal Consumed 75% 100% 100% Feeding Ability Assist with Tray Set Up Assist with Tray Set Up Independent Urine Appearance Clear Urine Color Dark Yellow Urine Odor Normal Stool Size Small Stool Color Brown Stool Consistency Soft Loose # Voids 1 # Bowel Movements 1 1 Weight 115.984 kg Medical - DS: Data Labs on day of discharge: Labs from last 24 hours 09/28/19 09/28/19 09/28/19 08:06 04:15 04:15 WBC 6.9 RBC 4.97 Hgb 12.9 L Hct 39.2 L MCV 78.9 L MCH 25.9 L MCHC 32.9 RDW 16.8 H Plt Count 286 MPV 8.5 Gran % 63.0 Lymph % (Auto) 20.0 Titus % (Auto) 6.5 Eos % (Auto) 10.0 H Baso % (Auto) 0.5 Gran # 4.4 Lymph # (Auto) 1.4 L Titus # (Auto) 0.4 Eos # (Auto) 0.7 Baso # (Auto) 0 Sodium 135 Potassium 4.3 Chloride 104 Carbon Dioxide 24 Anion Gap 7.0 L BUN 20 Creatinine 1.1 GFR Calculation 87 Glucose 123 H Uric Acid 6.3 Calcium 8.3 L Phosphorus 1.9 L Magnesium 1.7 Total Bilirubin 0.3 Direct Bilirubin < 0.2 GGT 19 AST 18 ALT 24 Alkaline Phosphatase 67 Lactate Dehydrogenase 185 Total Protein 6.7 Albumin 3.7 Globulin 3.0 Albumin/Globulin Ratio 1.2 Triglycerides 154 H Vancomycin Trough 13.8 09/27/19 06:17 WBC RBC Hgb Hct MCV MCH MCHC RDW Plt Count MPV Gran % Lymph % (Auto) Titus % (Auto) Eos % (Auto) Baso % (Auto) Gran # Lymph # (Auto) Titus # (Auto) Eos # (Auto) Baso # (Auto) Sodium Potassium Chloride 103 Carbon Dioxide 20 L Anion Gap 12.0 BUN Creatinine 1.8 H GFR Calculation 48 Glucose Uric Acid Calcium 8.4 L Phosphorus Magnesium Total Bilirubin Direct Bilirubin GGT AST ALT Alkaline Phosphatase Lactate Dehydrogenase Total Protein 7.3 Albumin Globulin 3.4 Albumin/Globulin Ratio 1.1 Triglycerides Vancomycin Trough Preliminary micro results at discharge 09/26/19 21:25 Blood Culture - Preliminary Blood 09/26/19 22:20 Blood Culture - Preliminary Blood Medical - DS: A/P - Patient/Caregiver Discharge Instructions Activity: increase activity as tolerated Diet: Consistent Carbohydrate Additional Instructions: Follow-up with PCP in 3 to 7 days. Prescriptions: Oseltamivir Phosphate [Tamiflu] 75 mg PO BID #5 cap - Follow up Plan Follow up with: No,PCP [Primary Care Provider] - Disposition: Home, Self-Care Prognosis: Good Rehab Potential: Good Overall status at discharge: patient is back to baseline
[2019-09-28] MEDS ORDERED: ACETAMINOPHEN 325 MG TABLET PO PRN (11:57)
[2019-09-28] MEDS ORDERED: DEXTROSE 50% 50 ML VIAL IV PRN (11:57)
[2019-09-28] MEDS ORDERED: ONDANSETRON 4 MG/2 ML VIAL IV PRN (11:57)
[2019-09-28] MEDS ORDERED: IPRATROPIUM/ALBUTEROL 3 ML AMPUL.NEB NEB PRN (11:57)
[2019-09-28] MEDS ORDERED: DEXTROSE 31 GM ORAL.SUSP PO PRN (11:57)
[2019-09-28] MEDS ORDERED: 0.9 % SODIUM CHLORIDE 1,000 ML IV SCH (11:57)
[2019-09-28] MEDS: NEUTRA PHOS 1 PACKET PO SCH ×2 (17:13→21:29)
[2019-09-29] MEDS: 0.9 % SODIUM CHLORIDE 10 ML SYRINGE IV SCH (05:37)
[2019-09-29] MEDS: INSULIN LISPRO 1 UNIT/0.01 ML UNIT SQ SCH (07:15)
[2019-09-29] MEDS: OSELTAMIVIR PHOSPHATE 75 MG CAPSULE PO SCH (08:08)
[2019-09-29] MEDS ORDERED: ENOXAPARIN 40 MG/0.4 ML SYRINGE SQ SCH (09:00)
== END 2019-09-29 10:12 | disposition home or self-care (01) | DRG 866 ==
LOC: ED 20:32 → ICU 09-27 01:26 → MEDSUR 09-28 12:40
PROVIDERS: ADMIT Internal Medicine; ATTEND Internal Medicine